=== PATIENT | female | born 1935 | race Caucasian/White ===

== ENCOUNTER 2017-01-17 06:33 | Inpatient (IN) | payer BC, OTHER ==
[2017-01-05 12:15] VITALS: BMI 26.0
--- NOTE | 2017-01-05 12:58 | PAT Medication Instructions ---
Service Date Jan 05, 2017. Current Home Medication List Acetaminophen Tab (Tylenol), 325 MG PO Calcium (Calcium), 1,000 MG PO QAM Calcium Carbonate (Tums), 500 MG PO for GI Upset Cholecalciferol (Vitamin D), 1 TAB PO QAM Diphenhydramine-Acetaminophen (Excedrin Pm), Unknown Dose PO for Pain Flaxseed (Linseed) (Flaxseed Oil), 1 CAP PO QAM Fluocinolone Acetonide (Otic) (Fluocinolone Acetonide), 1 DOSE OTB DAILY PRN for ITCHY EARS Szmvtdbtsix-Dbfsxbnqpnm-Evy C- (Glucosamine Chondroitin), 1 DOSE PO QAM Lactic Acid (Ammonium Lactate Cream 12%), 1 DOSE TOP DAILY PRN for ITCHING ON BACK Levothyroxine Sodium (Synthroid), 25 MCG PO QAM Loratadine (Claritin), 10 MG PO DAILY PRN for ALLERGIC REACTION Triamcinolone Acet (Triamcinolone Acetonide), 1 APPLN TOP BID PRN for RASH Vitamin B Cmplx/Vitc/Folic Ac (Nephrocaps), 1 CAP PO QAM Medication Instructions For Your Scheduled Surgery Diphenhydramine-Acetaminophen (Excedrin Pm), Unknown Dose PO for Pain (check with surgeon for instructions) - Hold the following medications starting 01/06/17: Pnjpezvnxol-Xuklycuayfs-Aaf C- (Glucosamine Chondroitin), 1 DOSE PO QAM Flaxseed (Linseed) (Flaxseed Oil), 1 CAP PO QAM - Hold the following medications 24 hours prior to surgery: Triamcinolone Acet (Triamcinolone Acetonide), 1 APPLN TOP BID PRN for RASH Lactic Acid (Ammonium Lactate Cream 12%), 1 DOSE TOP DAILY PRN for ITCHING ON BACK - Hold the following medications the morning of surgery: Vitamin B Cmplx/Vitc/Folic Ac (Nephrocaps), 1 CAP PO QAM Loratadine (Claritin), 10 MG PO DAILY PRN for ALLERGIC REACTION Calcium Carbonate (Tums), 500 MG PO for GI Upset Cholecalciferol (Vitamin D), 1 TAB PO QAMx Calcium (Calcium), 1,000 MG PO QAM - Take the following medications the morning of surgery with a sip of water: Levothyroxine Sodium (Synthroid), 25 MCG PO QAM Acetaminophen Tab (Tylenol), 325 MG PO Fluocinolone Acetonide (Otic) (Fluocinolone Acetonide), 1 DOSE OTB DAILY PRN for ITCHY EARS - Take the following medications as scheduled the night before surgery: Loratadine (Claritin), 10 MG PO DAILY PRN for ALLERGIC REACTION Acetaminophen Tab (Tylenol), 325 MG PO Fluocinolone Acetonide (Otic) (Fluocinolone Acetonide), 1 DOSE OTB DAILY PRN for ITCHY EARS If you have any questions please call us at [phone] (Erma Zaman PA-C) or [phone] or [phone]
[2017-01-05 13:20] LABS: BASO % 0.5 %; BASO ABS # 0.03 K/uL (0-0.2); COMPLETE YES; EOS % 5.4 %; HEMATOCRIT 41.6 % (37-47); IG% 0.2 %; LYMPH % 24.8 %; LYMPH ABS # 1.55 K/uL (1.2-3.4); MEAN CELL VOLUME 94.8 fL (80-100); MEAN CORPUSCULAR HEMOGLOBIN 32.8 pg (25-34); MEAN CORPUSCULAR HGB CONC 34.6 g/dl (32-36); MEAN PLATELET VOLUME 10.7 fL (7.4-10.4); MONO % 7.5 %; NEUT % 61.6 %; PLATELET COUNT 231 K/uL (130-400); RED BLOOD COUNT 4.39 M/uL (4.2-5.4); WHITE BLOOD COUNT 6.25 K/uL (4.8-10.8)
--- NOTE | 2017-01-05 13:29 | DIAGNOSTIC IMAGING REPORT ---
CHEST 2 VIEWS ROUTINE CLINICAL HISTORY: Preoperative evaluation. COMPARISON STUDY: Chest radiograph October 18, 2015. FINDINGS: Lung volumes are normal. There is no pneumothorax or pleural effusion. Pulmonary vascularity is normal. Cardiomediastinal silhouette is normal. Minimal left basilar opacity likely reflects epicardial fat pad or atelectasis. There is no evidence of pulmonary edema. IMPRESSION: No acute cardiopulmonary findings. Electronically signed by: Logan Truong M.D. 01/05/2017 1:28 PM Dictated Date/Time: 01/05/2017 1:27 PM
[2017-01-05 13:32] LABS: PROTHROMBIN TIME (PATIENT) 10.4 SECONDS (9.0-12.0)
[2017-01-05 13:43] LABS: BLOOD UREA NITROGEN 20 mg/dl (7-18); BUN/CREATININE RATIO 17.8 (10-20); C-REACTIVE PROTEIN < 0.29 mg/dl (0-0.29); CALCIUM 8.8 mg/dl (8.5-10.1); CARBON DIOXIDE 30 mmol/L (21-32); CHLORIDE 105 mmol/L (98-107); GLUCOSE 91 mg/dl (70-99); POTASSIUM 3.8 mmol/L (3.5-5.1); SODIUM 142 mmol/L (136-145)
--- NOTE | 2017-01-13 18:47 | HISTORY & PHYSICAL EXAMINATION ---
DATE OF ADMISSION: 01/17/2017 CHIEF COMPLAINT: Persistent right knee pain, discomfort after partial knee replacement. HISTORY OF PRESENT ILLNESS: The patient is a 81-year-old white female who is now 8 years out from a right partial knee replacement. She initially did pretty well, but over the past several years she has developed increased pain and discomfort and intermittently severely disabling times with her knee. She has had to use a cane to get around for periods of time. Her symptoms do tend to wax and wane where at some point she has difficulty even walking, another point that it is not so bad. She describes fairly global pain in her knee. It is increased with weightbearing. She cannot take anti-inflammatories or any other pain medicines due to allergies and reactions. She does not do well with injections either. X-rays show progression of her lateral compartment arthritis. She would really like to have her knee fixed. There has been no history of infection. PAST MEDICAL HISTORY: 1. Multiple allergies. 2. Hypertension. 3. Sleep apnea with CPAP machine. 4. Hypothyroidism. 5. Gastroesophageal reflux disease. 6. Hiatal hernia. 7. Esophagitis PAST SURGICAL HISTORY: Include 1. Right partial knee replacement done on 12/04/2008. 2. Left partial knee replacement done on 08/14/2008. 3. Tonsillectomy. 4. Appendectomy. 5. Foot surgery. 6. Sinus surgery. ALLERGIES: MULTIPLE AND INCLUDE ANTI-INFLAMMATORIES WHICH ARE NOT A TRUE ANAPHYLACTIC REACTIONS, SULFA DRUGS, STATINS, QUINOLONES, IODINE, ACTONEL, EVISTA, FOSAMAX, ASTELIN, PRILOSEC, PROTONIX, DECONGESTANTS, WHEAT, EGGS, CORN, DAIRY. CURRENT MEDICINES: Include 1. Levothyroxine. 2. Claritin. 3. Tylenol. SOCIAL HISTORY: A 81-year-old female. She is . Fairly active. FAMILY HISTORY: Noncontributory. REVIEW OF SYSTEMS: Negative for diabetes, neurologic problems, vascular problems, bleeding disorders. Denies any chest pain or shortness of breath. No history of DVT or PE. She does have these multiple allergies many of which are not true anaphylactic reactions. PHYSICAL EXAMINATION: GENERAL: Reveals a pleasant, elderly female. She looks to be in good health. HEENT: Benign. NECK: Supple. No lymphadenopathy. LUNGS: Clear to auscultation. HEART: Regular rate and rhythm. ABDOMEN: Soft, nontender, nondistended. EXTREMITIES: Grossly neurovascularly intact except as follows: Examination of the right leg reveals the patient walks with the use of a cane. She has got a well-healed medial incision. Fairly small knee effusion. She got pretty significant varicose veins around her right anterior knee area. Range of motion 0-125. No instability. X-RAYS: X-rays of the right knee reviewed. It shows a well-positioned partial knee replacement. There is an extra piece of cement medially which has been there for quite some time. She does have some progression of her lateral compartment disease. I do not see any obvious signs of loosening of her partial knee replacement. ASSESSMENT: A 81-year-old female 8 years out from a right partial knee replacement with several year history of intermittent severe bouts of pain with respect to right knee. There is no history of infection. There is this piece of cement which is there but does not seem to be migrating and she does have progression of her lateral compartment disease. PLAN: We talked about treatment options. She really would like to have this revised to a full knee replacement. I told her there is no guarantee that this will fix all of her problems but she does have a reason to have some pain in her knee. We are going to take her to the operating room and do a right total knee replacement. We are going to convert the partial to a full knee replacement. The risks and benefits of this procedure were explained to the patient including but not limited to DVT, PE, , infection, neurological injury, vascular injury, bleeding problem, pain, limited range of motion, stiffness, failure to relieve her symptoms, incomplete relief of symptoms, need for further surgery in the future, fracture, leg length inequality, nerve palsy, failure to relieve her symptoms. The patient understands and desires to proceed. Informed consent was obtained. I did do a preoperative workup. Her white cell count is normal. Her sed rate is normal and C-reactive protein are normal and therefore we did not aspirate her knee joint. I think it is extremely unlikely she has any infection, but we will evaluate things intraoperatively as well. Postoperative pain control will be an issue. She is allergic to just about everything and will have to the stick to Tylenol and may be some limited narcotics. As far as discharge plans, she is hoping to be discharged to home with some home health using [facility] home [facility] program.
[~2017-01-17] VITALS: Ht 172.7 cm; Wt 80.0 kg
[2017-01-17] VITALS (7 sets, daily range): BP systolic 157–174; BP diastolic 67–94; PULSE 58–65; TEMP 36.4–36.9; O2SAT 95–99; Ht 172.7 cm; Wt 80.0 kg
[~2017-01-17 06:33] MED LIST: ACET325T96 PO; ACETAMINOPHEN 500 MG TAB PO SCH; B-CO1CAP17 PO; BUPIVACAINE LIPOSOME 266 MG, BUPIVACAINE/EPINEPHRINE INJ 50 ML, SODIUM CHLORIDE 0.9% PF... INFIL SCH; CALC500C3 PO; CALC500T83 PO; CEFAZOLIN 2000 MG/60 ML D5W 60 ML IV SCH; CHOL100010 PO; DIPH38TA PO; FAMOTIDINE 20 MG TAB PO SCH; FLAX12003 PO; FLUO5OIL OTB; GABAPENTIN 300 MG CAP PO SCH; GLUCTAB7 PO; LACTATED RINGER'S 1000ML 1,000 ML IV SCH; LCHC12280 TOP; LEVO25TA PO; LORA10TA5 PO; METOCLOPRAMIDE HCL 10 MG TAB PO SCH; SCOPOLAMINE 1.5 MG TDSY TD SCH; TRANEXAMIC ACID INJ 1,000 MG in SODIUM CHLORIDE 0.9% 100ML 100 ML IV SCH; TRMO115 TOP; [UNRECOGNIZED DRUG - REMARK] SCH
--- NOTE | 2017-01-17 06:51 | History & Physical Bridge Note ---
H&P Re-Evaluation Bridge Note: I have examined the patient, reviewed the History & Physical and in the interval since the performance of the History & Physical I have noted the following changes of clinical significance: No changes noted
[2017-01-17] MEDS ORDERED: BUPIVACAINE 0.25% 30 ML VIAL ONE (07:17)
[2017-01-17] MEDS ORDERED: BUPIVACAINE 0.5 % 5 MG/1 ML PF 10ML VIAL ONE (07:17)
[2017-01-17] MEDS ORDERED: MIDAZOLAM HCL 1 MG/ML 2ML VIAL ONE (08:00)
[2017-01-17] MEDS ORDERED: FENTANYL CITRATE INJ 50 MCG/1 ML 2 ML VIAL ONE (08:00)
[2017-01-17] MEDS ORDERED: LACTATED RINGER'S 1000ML 1,000 ML IV PRN (08:09)
[2017-01-17] MEDS ORDERED: ONDANSETRON INJ 2 MG/ML 2 ML VIAL IV PRN ×2 (08:15→11:30)
[2017-01-17] MEDS ORDERED: FENTANYL CITRATE INJ 50 MCG/1 ML 2 ML VIAL IV PRN (08:15)
[2017-01-17] MEDS ORDERED: BUPIVACAINE/EPINEPHRINE 0.25% 1:200,000 30 ML VIAL ONE (09:30)
[2017-01-17] MEDS ORDERED: BACITRACIN 50000 UNIT VIAL ONE ×2 (09:30→09:43)
[2017-01-17] MEDS ORDERED: SODIUM CHLORIDE 0.9% PF 50 ML VIAL ONE (09:30)
[2017-01-17] MEDS ORDERED: BUPIVACAINE LIPOSOME 1/3% 266 MG/20 ML VIAL INFIL ONE (09:30)
[2017-01-17] MEDS ORDERED: PROPOFOL IV EMULSION 10 MG/ML 20 ML VIAL IV ONE ×2 (10:11)
[2017-01-17] MEDS ORDERED: VANCOMYCIN HCL 1000MG/20ML VIAL ONE (10:37)
[2017-01-17] MEDS ORDERED: BISACODYL 10 MG SUPP PR PRN (11:30)
[2017-01-17] MEDS ORDERED: LORATADINE 10 MG TAB PO PRN (11:30)
[2017-01-17] MEDS ORDERED: METOCLOPRAMIDE HCL INJ 5 MG/ML 2 ML VIAL IV PRN (11:30)
[2017-01-17] MEDS ORDERED: CALCIUM CARBONATE 500 MG CHEWABLE PO PRN (11:30)
[2017-01-17] MEDS ORDERED: TRIAMCINOLONE ACET 0.1% OINT 15 GM TUBE TOP PRN (11:30)
[2017-01-17] MEDS ORDERED: ZOLPIDEM TARTRATE 5 MG TAB PO PRN (11:30)
[2017-01-17] MEDS ORDERED: MAGNESIUM HYDROXIDE SUSP 30 ML UDC PO PRN (11:30)
[2017-01-17] MEDS ORDERED: DiphenhydrAMINE HCL 50 MG/ML VIAL IV PRN (11:30)
--- NOTE | 2017-01-17 11:30 | [facility] Post Operative Brief Note ---
Immediate Operative Summary Operative Date Jan 17, 2017. 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 Gala STEVENS Stonemason Helper Surgeon(s) Gage JONES PA-C Estimated Blood Loss 250ML Findings Failed Uni-knee; Progressive Arthritis Fluids (cc crystalloids) 1400 vv Specimens A: RIGHT KNEE BONE AND TISSUE b: EXPLANTED HARDWARE FROZEN 1. RIGHT KNEE SYNOVIUM- LEFT ROOM AT 1008. Drains None Anesthesia Spinal Complication(s) None Disposition Recovery Room / PACU
--- NOTE | 2017-01-17 12:10 | DIAGNOSTIC IMAGING REPORT ---
TWO VIEWS RIGHT KNEE CLINICAL HISTORY: Postoperative examination. FINDINGS: AP and crosstable lateral portable views of the right knee are obtained. A right knee arthroplasty is in near anatomic alignment. There has been undersurface remodeling of the patella. No acute fracture is seen. There are expected postoperative changes around the knee including skin clips, soft tissue edema, and subcutaneous gas. IMPRESSION: Expected postoperative changes status post right knee arthroplasty. No acute fracture is seen. Electronically signed by: Farhan Ramirez M.D. 01/17/2017 12:09 PM Dictated Date/Time: 01/17/2017 12:09 PM
--- NOTE | 2017-01-17 12:17 | Anesthesiology Progress Note ---
Anesthesia Post Op Note Date & Time Jan 17, 2017 at 12:17 Vital Signs Pain Intensity: 0 Vital Signs Past 12 Hours Date Time Temp Pulse Resp B/P Pulse Ox O2 Delivery O2 Flow Rate FiO2 01/17/17 12:00 36.4 62 16 150/68 100 Nasal Cannula 2 01/17/17 11:50 62 16 166/63 97 Nasal Cannula 2 01/17/17 11:40 63 18 148/64 98 Nasal Cannula 2 01/17/17 11:34 36.0 65 16 134/76 99 Nasal Cannula 2 01/17/17 07:09 36.8 65 20 174/94 96 Room Air Notes Mental Status: alert / awake / arousable, participated in evaluation Pt Amnestic to Procedure: Yes Nausea / Vomiting: adequately controlled Pain: adequately controlled Airway Patency, RR, SpO2: stable & adequate BP & HR: stable & adequate Hydration State: stable & adequate Neuraxial Anesthesia: was administered, sensory block is resolving Anesthetic Complications: no major complications apparent Pt doing well.
--- NOTE | 2017-01-17 12:28 | OPERATIVE REPORT ---
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 POSTOPERATIVE DIAGNOSIS: Same. PROCEDURE PERFORMED: Right revision total knee arthroplasty with conversion of a partial knee to a full knee replacement. COMPLICATIONS: None. ESTIMATED BLOOD LOSS: 50 mL. FLUID REPLACEMENT: 1400 mL crystalloid fluid replacement. ANESTHESIA: Spinal with adductor canal block. DRAINS: None. SPECIMENS: 1. Synovium sent for numbers of poly per high power field, which was less than 2. 2. Knee sent for pathology. OPERATIVE INDICATIONS: The patient is a 81-year-old very active female, who is now about 8 years out from a right partial knee replacement. Over the past several years, she has had intermittent severe problems in her right knee. It is really limiting her activities. She was seen on multiple occasions with intermittent swelling and discomfort. Radiographs did not show any obvious abnormalities. She had failed conservative treatment. She elected to proceed with revision of a partial to full knee replacement. Of note, the patient did have an infectious workup with a normal sed rate and normal C-reactive protein. OPERATIVE FINDINGS: Operative findings revealed intact knee components. She had hemosiderin synovitis of the knee. She did have a large cyst in her lateral tibial plateau and progression of arthritis to the lateral femoral condyle as well as the patellofemoral joint with some grade 4 changes. The components were not loose. There were no signs of infection. OPERATIVE IMPLANTS: Operative implants consisted of: 1. Biomet Vanguard size 65 right posterior stabilized femoral component. 2. Biomet size 71 tibial tray. 3. A 14-mm posterior stabilized polyethylene insert. 4. A 34 x 8.5 all poly patella. OPERATIVE PROCEDURE: The patient was taken to the operating room, identified and placed on the operating table in supine position. All contact areas were appropriately padded. IV antibiotics were provided by anesthesia team. A spinal anesthetic and adductor canal block had been provided in the holding area. Alexandra catheter was placed in sterile fashion. Right thigh tourniquet was then placed and the right lower extremity was then prepped and draped in the usual sterile fashion. The right leg was elevated and exsanguinated with Esmarch and tourniquet was placed at 300 mmHg. An anterior approach to the right knee was then performed using the previous incision extending it superiorly over the patella and the quad tendon and then just slightly distally. Sharp dissection was carried out through the subcutaneous tissues down to the level of the extensor mechanism. A medial parapatellar arthrotomy incision was made. Some subperiosteal dissection was carried out medially. The fat pad was resected from beneath the patellar tendon. The patella was subluxated and the knee was flexed. The osteophytes were taken off the distal femur. The ACL and PCL were then released from the distal femur and the tibia subluxated anteriorly. The external tibial alignment jig was then placed in the anterior face of the tibia and the tibia was subluxated anteriorly. I then used the ACL saw blade to remove the tibial tray. We did have to loosen this up and then using the stacked osteotome technique, removed the tibial tray. It was not loose. The external tibial alignment jig was then placed in the anterior face of the tibia and adjusted 14 mm medially. Proximal tibial cut was made just below the previous implant surface. We got good bony contact. We elected not to place the stem. The tibia was sized to a size 71. Attention was then drawn to the femur. The distal femur was entered with a sharp drill bit. Intramedullary canal was suctioned. A right 5-degree valgus cutting guide was placed. Distal femoral cutting block was pinned in place. I then removed the block and left the pins. Using the ACL saw, we disrupted the interface of the femoral component and then using the stacked osteotome technique, removed the femoral component as well. This was not loose either. The distal femoral cutting block was then placed back on the pins. Distal femoral cut was made to take an additional 3 mm of bone off the distal femur. The femur was then sized to a size 65. This did downsize this slightly. The AP cutting block was pinned parallel to the epicondylar axis. We have to hold this in proper position due to the deficiency of the medial femoral condyle from the previous arthroplasty. The anterior cut, anterior chamfer, posterior cut, and posterior chamfer cuts were made. Box cutting guide was placed and adjusted slight lateral and the box cut was made. The knee was flexed. The remnants of the medial and lateral menisci were excised. The osteophytes were taken off the posterior aspect of the femur. Trial femoral component was placed. Tibial tray was pinned in maximum external rotation and drill and stem punch were used to create defect in proximal tibia for the tibial tray. Of note, there was a large cyst in the lateral tibial plateau, which we curetted and eventually filled with cement. The knee was then trialed and the 14-mm insert fit most appropriately. Attention was then drawn to the patella. The patella was cleaned of all soft tissues. Patellar thickness measured 20 mm in thickness and it was cut down to 12. It was sized to a size 34 patella. Lug holes were drilled for a 34 patella. Lateral osteophyte was removed. Patella button was placed. Knee was taken through range of motion and the patella tracked nicely with no thumbs test. Attention was then drawn toward placement of permanent components. All trial components were removed. Bone plug was placed in the distal femur to limit blood loss. A double batch of Palacos G cement was mixed. I did add an additional gram of vancomycin due to the multiple surgeries that she has had. A size 65 posterior stabilized femoral component, size 71 tibial tray, 14-mm posterior stabilized polyethylene insert, and a 34 x 8.5 all poly patella then cemented in place. Knee was brought out into full extension until cement hardened. A final cement check was then performed. Pericapsular tissues were injected with a total of 100 mL of a combination of 20 mL of Exparel, 30 mL normal saline, and 50 mL of 0.25% Marcaine with epinephrine. The tourniquet was then let down for final tourniquet time of 71 minutes. Hemostasis was assured with use of electrocautery. The wound was once again irrigated. The extensor mechanism was closed with a combination of #1 PDS suture and #1 Vicryl suture in a enxwan-jf-euesg fashion. The extensor mechanism checked and found to be intact. The subcutaneous tissues were then closed with 2-0 Dexon suture in a buried interrupted fashion. Skin was closed skin hudson. Leg was then cleaned and dried and a sterile dressing of Xeroform, 4 x 4, sterile cast padding and Naun bandage were applied. The patient then transferred to the recovery room in stable condition. The patient tolerated the procedure well with no complications. All needle and sponge counts were correct at the end of the operation. After we did exposure, I did a complete synovectomy of the suprapatellar pouch and medial and lateral gutters. The frozen section came back less than 2 polys per high power field. There was hemosiderin synovitis of unclear etiology and clearly evidence of bleeding in the knee of unclear etiology. I attest to the content of the Intraoperative Record and any orders documented therein. Any exceptio ns are noted below.
[2017-01-17] MEDS ORDERED: AMMONIUM LACTATE 12% LOTION 225 GM BTL EXT PRN (14:00)
[2017-01-17] MEDS: ACETAMINOPHEN 500 MG TAB PO SCH ×2 (14:00→21:12)
[2017-01-17] MEDS: D5W AND 1/2NSS + 20MEQ KCL 1,000 ML IV SCH ×2 (14:42→23:55)
[2017-01-17] MEDS: OXYCODONE HCL IR 5 MG TAB (IMMEDIATE RELEASE) PO PRN ×2 (14:47→18:56)
[2017-01-17] MEDS: HYDROmorphone INJ 0.5 MG/0.5 ML SYR IV PRN ×2 (16:35→21:09)
[2017-01-17] MEDS ORDERED: TRANEXAMIC ACID INJ 1,000 MG in SODIUM CHLORIDE 0.9% 100ML 100 ML IV SCH (17:30)
[2017-01-17] MEDS: FERROUS GLUCONATE 324 MG TAB PO SCH (17:56)
[2017-01-17] MEDS: CEFAZOLIN IV 1,000 MG in DEXTROSE 5% 50ML 50 ML IV SCH (18:52)
--- NOTE | 2017-01-17 20:24 | PROGRESS NOTE ---
DATE: 01/17/2017 SUBJECTIVE: A 81-year-old white female, postop from a conversion of right partial knee to full knee replacement. She is doing pretty well. Pretty painful, but better since she got some pain medicines. Denies any chest pain or shortness of breath. Not feeling dizzy or lightheaded. OBJECTIVE: VITAL SIGNS: Temperature is 36.8. Vital signs stable. PHYSICAL EXAMINATION: GENERAL: Reveals a pleasant elderly female. She is sitting up in bed and looks reasonably comfortable. Clearly having some discomfort though. LUNGS: Clear to auscultation. HEART: Has a regular rate and rhythm. ABDOMEN: Soft, nontender, nondistended. EXTREMITIES: Grossly neurovascularly intact except as follows. Examination of the right lower extremity reveals the leg to be well aligned. Dressing is clean, dry and intact. She can dorsiflex and plantarflex her foot appropriately. She is neurologically intact. X-RAYS: X-rays of the right knee from recovery room were reviewed. It shows a right cemented posterior stabilized total knee arthroplasty. Components look to be in good position. No signs of problems. ASSESSMENT: A 81-year-old white female, postop from a right revision of a partial to full knee replacement. She is doing pretty well. Pretty painful, but she has got difficulty with multiple meds and makes pain control difficult with her reported allergies. I do not think a lot of these are true allergies and we may end up giving her some anti-inflammatories and Toradol if the pain gets too bad. PLAN: 1. DVT prophylaxis including thigh-high TEDs, SCDs, and aspirin twice a day. 2. PT/OT. Weightbearing as tolerated. Right total knee protocol. 3. Pain control. We are going to continue with IV pain medicines as needed and use the oxycodone and Tylenol. We may give her some Toradol if her pain gets worse or is not adequately controlled. 4. IV antibiotics x24 hours. 5. Disposition: She is hoping to be discharged to home with some home health once adequately recovered.
[2017-01-17] MEDS: ASPIRIN 325 MG ECTAB PO SCH (21:13)
[2017-01-17] MEDS: DOCUSATE SODIUM 100 MG CAP PO SCH (21:13)
[2017-01-18] VITALS (7 sets, daily range): BP systolic 126–176; BP diastolic 66–74; PULSE 65–88; TEMP 36.7–38.1; O2SAT 91–97
[2017-01-18] MEDS: CEFAZOLIN IV 1,000 MG in DEXTROSE 5% 50ML 50 ML IV SCH (02:15)
[2017-01-18] MEDS: LEVOTHYROXINE 25 MCG TAB PO SCH (06:09)
[2017-01-18] MEDS: ACETAMINOPHEN 500 MG TAB PO SCH ×3 (06:10→21:35)
[2017-01-18 06:17] LABS: HEMATOCRIT 33.5 % (37-47); MEAN CELL VOLUME 94.1 fL (80-100); MEAN PLATELET VOLUME 10.7 fL (7.4-10.4); PLATELET COUNT 186 K/uL (130-400); RED BLOOD COUNT 3.56 M/uL (4.2-5.4); WHITE BLOOD COUNT 8.45 K/uL (4.8-10.8)
[2017-01-18] MEDS: OXYCODONE HCL IR 5 MG TAB (IMMEDIATE RELEASE) PO PRN ×3 (06:21→20:46)
[2017-01-18 06:52] LABS: BUN/CREATININE RATIO 14.9 (10-20); CALCIUM 8.1 mg/dl (8.5-10.1); CREATININE 0.96 mg/dl (0.60-1.20); POTASSIUM 3.6 mmol/L (3.5-5.1)
--- NOTE | 2017-01-18 07:41 | ORTHOPEDIC PROGRESS NOTE ---
DATE: 01/18/2017 SUBJECTIVE: Angelica is a 81-year-old female who is postop day 1 from a conversion of a right partial knee replacement to a full total knee replacement. She is having some pain with her knee. No chest pain, shortness of breath. Had a difficult time sleeping overnight due to some alarms and noises. No other complaints at this time. OBJECTIVE: She is alert, oriented in no distress. Examination of the right lower extremity dressings clean, dry and intact. She is able to dorsiflex, plantarflex well. She is neurovascularly intact. ASSESSMENT: Postop day 1 from conversion of a right partial knee replacement to a total knee replacement. PLAN: She was seen and examined by Dr. Bazan today as well. Continue DARYL stockings, SCDs and aspirin for deep venous thrombosis prophylaxis. Continue physical therapy, weightbearing as tolerated. Will discontinue her IV fluids at this time. Her pain is reasonably controlled as well. Continue with current pain regimen. Will continue discharge planning with discharge home with home healthcare versus possible rehab upon discharge as well.
[2017-01-18] MEDS: FERROUS GLUCONATE 324 MG TAB PO SCH ×3 (08:35→18:32)
--- NOTE | 2017-01-18 08:35 | Anesthesiology Progress Note ---
Anesthesia Post Op Note Date & Time Jan 18, 2017 at 08:35 Vital Signs Pain Intensity: 7.0 Vital Signs Past 12 Hours Date Time Temp Pulse Resp B/P Pulse Ox O2 Delivery O2 Flow Rate FiO2 01/18/17 07:37 38.1 70 18 172/74 94 Room Air 01/18/17 03:52 37.5 65 16 166/67 97 CPAP 01/18/17 00:05 37.4 69 16 145/69 92 Room Air 01/18/17 00:00 Room Air Notes Mental Status: alert / awake / arousable, participated in evaluation Pt Amnestic to Procedure: Yes Nausea / Vomiting: adequately controlled Pain: adequately controlled Airway Patency, RR, SpO2: stable & adequate BP & HR: stable & adequate Hydration State: stable & adequate Neuraxial Anesthesia: sensory block resolved Anesthetic Complications: no major complications apparent
[2017-01-18] MEDS: DOCUSATE SODIUM 100 MG CAP PO SCH ×2 (08:36→20:47)
[2017-01-18] MEDS: ASPIRIN 325 MG ECTAB PO SCH ×2 (08:36→20:47)
[2017-01-18] MEDS: CALCIUM CARBONATE 1250MG TAB PO SCH (08:36)
[2017-01-18] MEDS: NEPHROCAPS PO SCH (08:36)
[2017-01-18] MEDS: MULTIVITAMIN TAB PO SCH (08:36)
[2017-01-18] MEDS: CHOLECALCIFEROL 400 INTER.UNIT TAB PO SCH (08:37)
[2017-01-18] MEDS ORDERED: NON-FORMULARY MEDICATION (Flaxseed (Linseed) (Flaxseed Oil) 1 CAP) PO SCH (09:00)
[2017-01-18] MEDS ORDERED: ACET-1138 PO (21:39)
[2017-01-18] MEDS ORDERED: RXC5 PO (21:39)
[2017-01-18] MEDS ORDERED: ASPEC325 PO (21:39)
--- NOTE | 2017-01-18 21:41 | Discharge Instructions ---
Discharge Instructions Date of Service Jan 18, 2017. Admission Reason for Admission: Right Knee Osteoarthritis, Pain D/T Implant Device Discharge Discharge Diagnosis / Problem: Right Knee Replacement Discharge Goals Goal(s): Decrease discomfort, Improve function, Increase independence, Improve disease control, Therapeutic intervention Activity Recommendations Activity Limitations: per Instructions/Follow-up section Weightbearing Status: Right weightbearing . Instructions / Follow-Up Instructions / Follow-Up ACTIVITY RECOMMENDATIONS: Physical Therapy: * You will go to physical therapy three times each week for four to six weeks after your surgery in order to regain your knee range of motion and to retrain your knee to work properly. * It is just as important to make sure you are getting your knee perfectly straight as it is to regain your knee bend. * Taking a pain pill an hour before therapy can help you have a more productive and comfortable therapy session. Home Exercise: * You were shown a series of exercises (heel props, heel slides, etc.) in the hospital. Do these exercises three to four times each day including the exercises you were shown in physical therapy. Walking: * Get up and walk several times each day. For the first four weeks, try not to stand or walk for more than one hour at a time. If you do stand or walk for more than one hour, you will not hurt anything, but your knee and leg will likely swell. * As you feel comfortable, you may change from the walker or crutches to a cane and then to independent walking. MEDICATIONS: New Medicine: * You will likely be taking one or more of these medications: 1. Oxycodone - A quick and shorter-acting pain medication. Take one to two tablets every four to six hours to lessen your pain. 2. Aspirin - Thins your blood to lessen the chance of forming a blood clot. * The most common side effects of pain medicine and iron are nausea and constipation. If nausea or constipation is too much of a problem or if you have any questions about your new medicines or doses, call [facility] at . We will try to help you manage these issues. VERY IMPORTANT TO READ AND REVIEW" Pain: * The immediate post-operative period after knee replacement surgery is often quite painful. * You are given a prescription for pain medicine. You should take it, as directed, when you need it, especially before physical therapy and before going to bed. Pain that interferes with sleep is very common and can last several months. * You will likely need pain medicine for the first four to six weeks. It will not stop all of the pain. The pain will lessen and as you feel better, you may change to milder pain medicine such as Tylenol. * The most common side effects of pain medicine are nausea and constipation, so don't take more than you need. SPECIAL CARE INSTRUCTIONS: TEDs/Elastic Stockings: * The white elastic stockings help limit swelling and prevent blood clots from forming in your legs. The more you wear them, the more they work. * Wear them for six weeks after knee replacement surgery and four weeks after partial knee replacement. Prevention of Infection: * Take antibiotics one hour before any dental cleaning, dental work, urological procedure, gastrointestinal procedure or any invasive surgery in order to prevent your new joint from getting infected. * You may get the antibiotics from the doctor performing the procedure or you may call our office at before and we will call in a prescription to the pharmacy of your choice. Things to Watch For: * Drainage from the incision site that occurs more than one week after your surgery. * Severely increased knee/leg pain or swelling. * Increased redness at the incision site. * Fever above 102 degrees Fahrenheit. * Unusual chest pain or shortness of breath. * Unusual pain or burning with urination. Call [facility] at with any of the above problems or if you have any questions about your medicines or recovery. FOLLOW UP VISIT: Make an appointment to see your doctor for approximately two weeks after surgery for a progress check and staple removal by calling the office at . Current Hospital Diet Patient's current hospital diet: Regular Diet Discharge Diet Recommended Diet: Regular Diet Procedures Procedures Performed: RIGHT UNI KNEE CONVERTED TO TOTAL RIGHT KNEE ARTHROPLASTY / Revision Total Knee Arthoplasty Pending Studies Studies pending at discharge: no Medical Emergencies . Who to Call and When: Medical Emergencies: If at any time you feel your situation is an emergency, please call [phone] immediately. . Non-Emergent Contact Non-Emergency issues call your: Surgeon . "Provider Documentation" section prepared by Obed Bazan. VTE Core Measure Inpt VTE Proph given/why not?: Other Anticoagulation, T.E.D. Stockings, SCD's
[2017-01-19] MEDS: OXYCODONE HCL IR 5 MG TAB (IMMEDIATE RELEASE) PO PRN ×3 (02:15→14:33)
[2017-01-19] MEDS: LEVOTHYROXINE 25 MCG TAB PO SCH (06:02)
[2017-01-19] MEDS: ACETAMINOPHEN 500 MG TAB PO SCH ×3 (06:03→21:33)
--- NOTE | 2017-01-19 07:35 | Discharge Instructions ---
Discharge Instructions Date of Service Jan 19, 2017. Admission Reason for Admission: Right Knee Osteoarthritis, Pain D/T Implant Device Discharge Discharge Diagnosis / Problem: Right Knee Replacement Revision Discharge Goals Goal(s): Decrease discomfort, Improve function, Increase independence, Improve disease control, Therapeutic intervention Activity Recommendations Activity Level: Assistance Required Therapies: Physical Therapy, Occupational Therapy Weightbearing Status: Right weightbearing . Additional Information Patient informed of condition: Yes Advance Directives: Yes DNR: No Level of Care: Acute Rehab Communicable Disease: No Prognosis: Improving Instructions / Follow-Up Instructions / Follow-Up ACTIVITY RECOMMENDATIONS: Physical Therapy: * You will go to physical therapy three times each week for four to six weeks after your surgery in order to regain your knee range of motion and to retrain your knee to work properly. * It is just as important to make sure you are getting your knee perfectly straight as it is to regain your knee bend. * Taking a pain pill an hour before therapy can help you have a more productive and comfortable therapy session. Home Exercise: * You were shown a series of exercises (heel props, heel slides, etc.) in the hospital. Do these exercises three to four times each day including the exercises you were shown in physical therapy. Walking: * Get up and walk several times each day. For the first four weeks, try not to stand or walk for more than one hour at a time. If you do stand or walk for more than one hour, you will not hurt anything, but your knee and leg will likely swell. * As you feel comfortable, you may change from the walker or crutches to a cane and then to independent walking. MEDICATIONS: New Medicine: * You will likely be taking one or more of these medications: 1. Oxycodone - A quick and shorter-acting pain medication. Take one to two tablets every four to six hours to lessen your pain. 2. Aspirin - Thins your blood to lessen the chance of forming a blood clot. * The most common side effects of pain medicine and iron are nausea and constipation. If nausea or constipation is too much of a problem or if you have any questions about your new medicines or doses, call [facility] at . We will try to help you manage these issues. VERY IMPORTANT TO READ AND REVIEW" Pain: * The immediate post-operative period after knee replacement surgery is often quite painful. * You are given a prescription for pain medicine. You should take it, as directed, when you need it, especially before physical therapy and before going to bed. Pain that interferes with sleep is very common and can last several months. * You will likely need pain medicine for the first four to six weeks. It will not stop all of the pain. The pain will lessen and as you feel better, you may change to milder pain medicine such as Tylenol. * The most common side effects of pain medicine are nausea and constipation, so don't take more than you need. SPECIAL CARE INSTRUCTIONS: TEDs/Elastic Stockings: * The white elastic stockings help limit swelling and prevent blood clots from forming in your legs. The more you wear them, the more they work. * Wear them for six weeks after knee replacement surgery and four weeks after partial knee replacement. Prevention of Infection: * Take antibiotics one hour before any dental cleaning, dental work, urological procedure, gastrointestinal procedure or any invasive surgery in order to prevent your new joint from getting infected. * You may get the antibiotics from the doctor performing the procedure or you may call our office at before and we will call in a prescription to the pharmacy of your choice. Things to Watch For: * Drainage from the incision site that occurs more than one week after your surgery. * Severely increased knee/leg pain or swelling. * Increased redness at the incision site. * Fever above 102 degrees Fahrenheit. * Unusual chest pain or shortness of breath. * Unusual pain or burning with urination. Call [facility] at with any of the above problems or if you have any questions about your medicines or recovery. FOLLOW UP VISIT: Make an appointment to see your doctor for approximately two weeks after surgery for a progress check and staple removal by calling the office at . Current Hospital Diet Patient's current hospital diet: Regular Diet Discharge Diet Recommended Diet: Regular Diet Procedures Procedures Performed: RIGHT UNI KNEE CONVERTED TO TOTAL RIGHT KNEE ARTHROPLASTY / Revision Total Knee Arthoplasty Pending Studies Studies pending at discharge: no Medical Emergencies . Who to Call and When: Medical Emergencies: If at any time you feel your situation is an emergency, please call [phone] immediately. . Non-Emergent Contact Non-Emergency issues call your: Surgeon . . "Provider Documentation" section prepared by Obed Bazan. Core Measure Problem Core Measures: None
--- NOTE | 2017-01-19 08:07 | PROGRESS NOTE ---
DATE: 01/19/2017 SUBJECTIVE: A 81-year-old white female postop from a right revision of a partial to full knee replacement. Concerned about taking quite a bit of pain medicines. She is still requiring quite a bit to help just getting out of bed. Denies any chest pain or shortness of breath. Pain is a little bit better than yesterday. OBJECTIVE: VITAL SIGNS: Temperature 38.1. Vital signs stable. GENERAL: Reveals a pleasant, elderly female. She is awake, alert and oriented. LUNGS: Clear to auscultation. HEART: Regular rate and rhythm. ABDOMEN: Soft, nontender, and nondistended. EXTREMITIES: Grossly neurovascularly intact except as follows. Examination of the right lower extremity reveals the leg to be well aligned. Some moderate swelling. No significant drainage. She can dorsiflex and plantarflex her foot appropriately. She is neurologically intact. ASSESSMENT: A 81-year-old white female postop day 2 from a right total knee revision and replacement of partial to full knee replacement. Pain is a bit improved. She is concerned about her help at home and ability to get around. I do think she would be best served by going to rehabilitation. PLAN: 1. DVT prophylaxis including thigh-high TEDs, SCDs, and aspirin twice a day. 2. PT/OT. Weightbearing as tolerated. Right total knee protocol. 3. Pain control, doing pretty well with current pain regimen. She has not taken excessive pain meds. She just does not like taking medicines. She is going to need some oxycodone for the next 2-4 weeks. 4. Disposition: She does not feel ready to go home. Will get home health care social worker to see her about possible rehab stay.
[2017-01-19 08:16] VITALS: BP 122/78; PULSE 83; TEMP 36.9; O2SAT 95
[2017-01-19 09:09] VITALS: O2SAT 95
[2017-01-19] MEDS: DOCUSATE SODIUM 100 MG CAP PO SCH ×2 (09:15→21:32)
[2017-01-19] MEDS: ASPIRIN 325 MG ECTAB PO SCH ×2 (09:15→21:32)
[2017-01-19] MEDS: FERROUS GLUCONATE 324 MG TAB PO SCH ×3 (09:15→17:45)
[2017-01-19] MEDS: MULTIVITAMIN TAB PO SCH (09:16)
[2017-01-19] MEDS: CALCIUM CARBONATE 1250MG TAB PO SCH (09:16)
[2017-01-19] MEDS: CHOLECALCIFEROL 400 INTER.UNIT TAB PO SCH (09:16)
[2017-01-19] MEDS: NEPHROCAPS PO SCH (09:17)
[2017-01-19 15:07] VITALS: BP 134/64; PULSE 87; TEMP 37.6; O2SAT 91
[2017-01-19 23:11] VITALS: BP 149/65; PULSE 83; TEMP 37.7; O2SAT 95
[2017-01-19] MEDS: ALUMINUM/MAGNESIUM/SIMETH (MAALOX MAX) 30 ML UDC PO PRN (23:57)
[2017-01-20] MEDS: ACETAMINOPHEN 500 MG TAB PO SCH ×3 (05:52→19:46)
[2017-01-20] MEDS: LEVOTHYROXINE 25 MCG TAB PO SCH (05:55)
[2017-01-20] MEDS: OXYCODONE HCL IR 5 MG TAB (IMMEDIATE RELEASE) PO PRN ×3 (05:58→18:34)
[2017-01-20 07:47] VITALS: BP 140/61; PULSE 92; TEMP 37.7; O2SAT 96
[2017-01-20] MEDS: FERROUS GLUCONATE 324 MG TAB PO SCH ×3 (08:30→18:58)
[2017-01-20] MEDS: CHOLECALCIFEROL 400 INTER.UNIT TAB PO SCH (09:00)
[2017-01-20] MEDS: MULTIVITAMIN TAB PO SCH (09:00)
[2017-01-20] MEDS: CALCIUM CARBONATE 1250MG TAB PO SCH (09:00)
[2017-01-20] MEDS ORDERED: NURSING VERBAL MED ORDER ONE (09:15)
[2017-01-20] MEDS: NEPHROCAPS PO SCH (09:28)
[2017-01-20] MEDS: DOCUSATE SODIUM 100 MG CAP PO SCH ×2 (09:28→19:46)
[2017-01-20] MEDS: ASPIRIN 81 MG ECTAB PO SCH (10:33)
[2017-01-20 11:05] VITALS: BP 114/62
[2017-01-20 15:08] VITALS: BP 124/67; PULSE 92; TEMP 37.5; O2SAT 93
[2017-01-20 16:17] VITALS: BP 152/77; PULSE 86
[2017-01-20] MEDS: ALUMINUM/MAGNESIUM/SIMETH (MAALOX MAX) 30 ML UDC PO PRN (16:42)
[2017-01-20 18:02] LABS: BASO % 0.4 %; BASO ABS # 0.03 K/uL (0-0.2); EOS % 1.8 %; HEMATOCRIT 26.7 % (37-47); IG% 0.1 %; LYMPH % 14.6 %; LYMPH ABS # 1.14 K/uL (1.2-3.4); MEAN CELL VOLUME 96.7 fL (80-100); MEAN CORPUSCULAR HEMOGLOBIN 32.6 pg (25-34); MONO % 9.4 %; NEUT % 73.7 %; PLATELET COUNT 177 K/uL (130-400); RED BLOOD COUNT 2.76 M/uL (4.2-5.4)
[2017-01-20 18:23] LABS: COMPLETE YES; MEAN CORPUSCULAR HGB CONC 33.7 g/dl (32-36)
[2017-01-20 18:25] LABS: BLOOD UREA NITROGEN 19 mg/dl (7-18); BUN/CREATININE RATIO 17.4 (10-20); CARBON DIOXIDE 30 mmol/L (21-32); CHLORIDE 103 mmol/L (98-107); GLUCOSE 126 mg/dl (70-99); MAGNESIUM 2.3 mg/dl (1.8-2.4); POTASSIUM 3.6 mmol/L (3.5-5.1); SODIUM 140 mmol/L (136-145)
[2017-01-20 18:30] LABS: CKMB/CK RATIO 0.7 (0-3.0)
--- NOTE | 2017-01-20 18:44 | PROGRESS NOTE ---
DATE: 01/20/2017 CHIEF COMPLAINT: Status post right total knee arthroplasty postop day #3. PROGRESS: Angelica was seen and examined at bedside today. She said she was having an awful lot of pain in her right knee. She is very concerned about discharge to home because her has a bad back. She was hoping for discharge to a nursing facility. Otherwise, she has had no problems and no complaints. PHYSICAL EXAMINATION: The incision is clean and dry. The dressing has been changed. She is wearing her thigh high DARYL hose stockings as instructed. She is neurovascularly intact. She is lying with her knee almost in full extension. Vital signs are stable on room air. She is voiding on her own ? has not had a bowel movement yet. IMPRESSION: Status post right total knee arthroplasty postop day #3. PLAN: Will hold on discharge for now and we will look into sending her to a nursing facility such as [facility]. Case management is currently working on that. She can be weightbearing as tolerated. She will do thigh high TEDs, and SCDs for DVT prophylaxis. She states that she is not tolerating the aspirin twice a day very well and she was asking about being placed on aspirin 81 mg daily. I will discuss this with Dr. Bazan. We are currently awaiting placement at a nursing facility.
[2017-01-20 18:45] VITALS: BP 122/64; PULSE 90; TEMP 37.3; O2SAT 94
[2017-01-20] MEDS: RANITIDINE IV 50 MG in DEXTROSE 5% 100ML 100 ML IV SCH (19:45)
--- NOTE | 2017-01-20 21:07 | Medical Consult ---
Consultation Date of Consultation: Jan 20, 2017. Attending Physician: Obed Bazan M.D. Reason for Consultation: epigastric pain/lower chest pain History of Present Illness 81yo female with h/o eosinophilic esophagitis, hypothyroidism and numerous medication/food allergies who underwent right TKR on 01/17/[address] Obed Bazan. The patient has had a fairly uneventful post-op course per records. She reports pain and swelling in the right leg but has been participating with PT. Earlier this afternoon the patient was apparently taking a nap and using her CPAP for MILTON. She was awakened by severe epigastric pain as well as lower chest pain. She denied any shortness of breath, nausea, or diaphoresis. Some of the pain radiated to the anterior neck/lower jaw. She alerted the nursing staff who promptly called a Code Purple. I was nearby the patient's room and came to the Code Purple. Upon arrival the patient was lying in bed, was awake/alert x 3, and complaining of 6/10 pain. She pointed to the high epigastric region/lower chest wall as the location of the pain. Vitals were stable including BP, HR, and O2 sats. EKG was obtained showing NSR with PACs. She was hooked up to the monitor which showed NSR with PACs as well. Even before any medication was administered she reported the pain was already resolving. Just a few minutes after I had arrived it was down to 4/10 on a pain scale. The patient denied any previous episodes of abdominal pain or chest pain this admission. She reported no chest pain or shortness of breath with activity. She mentioned that she saw Dr. Allan Sebastian from [facility] within the last 2 years and had a negative stress test. Denied any family h/o CAD/IL. In total the epigastric pain lasted about 30-40 minutes in total. Past Medical/Surgical History PMH: 1. hypothyroidism 2. eosinophilic esophagitis 3. MILTON on CPAP 4. numerous medication & food allergies 5. chronic rash (eczema?) PSH: 1. T & A as child 2. appendectomy 3. left foot surgery 4. sinus surgery x 2 5. multiple EGDs 6. 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[employer] ) Allergies Coded Allergies: Procaine (Verified Allergy, Severe, NASAL PASSAGE CLOSES UP AND SWELLS NEAR INJECTION, 01/17/17) LIDOCAINE IS OK AND TAKES ANTIHISTAMINE Quinolones (Verified Allergy, Severe, 3 HOURS AFTER TAKING EXP U-SHAPED THROAT AND EAR REACTION, 01/17/17) Nortriptyline (Verified Allergy, Intermediate, UNKNOWN REACTION, 01/17/17) Statins (Verified Allergy, Intermediate, DRUG INDUCED SKIN ERUPTION AND BODY PAIN, 01/17/17) Sulfa Antibiotics (Verified Allergy, Intermediate, DRUG-INDUCED SKIN REACTION, 01/17/17) Cantaloupe (Verified Allergy, Mild, RASH, 01/17/17) [place] Oil (Verified Allergy, Mild, ESOPHAGUS CLOSES, 01/17/17) Diphtheria Toxoid (Verified Allergy, Mild, LOCALIZED REACTION, 01/17/17) IS OK WITH INJECTED INTO HIP Eggs or Egg-derived Products (Verified Allergy, Mild, ESOPHAGUS CLOSES, ) IF EATS EGGS MUST HAVE CLARITIN SHE TOLERATES PROPOPHOL Gadolinium (Verified Allergy, Mild, THROAT SWELLS, DYSPNEA, 01/17/17) Latex1 -Allergic Contact Dermititis (Verified Allergy, Mild, RASH, 01/17/17 ) Mushroom (Verified Allergy, Mild, RASH, 01/17/17) [place] (Verified Allergy, Mild, ESOPHAGUS CLOSES, 01/17/17) Peanut (Verified Allergy, Mild, ESOPHAGUS CLOSES, 01/17/17) Pertussis Vaccine (Verified Allergy, Mild, LOCALIZED REACTION, 01/17/17) IS OK WITH INJECTED INTO HIP Pneumococcal Vaccine (Verified Allergy, Mild, LOCALIZED REACTION, 01/17/17) IS OK WHEN INJECTED INTO HIP Poliomyelitis Vaccine, Inactivated (Verified Allergy, Mild, LOCALIZED REACTION, 01/17/17) IS OK WITH INJECTED INTO HIP Tetanus Toxoid, Adsorbed (Verified Allergy, Mild, LOCALIZED REACTION, 01/17) IS OK WITH INJECTED INTO HIP Turmeric (Verified Allergy, Mild, BLACK AREAS IN VISION, 01/17/17) Wheat (Verified Allergy, Mild, ESOPHAGUS CLOSES AND FOOD STICKS, 01/17/17) Adhesives (Verified Allergy, Unknown, BANDAIDS, 01/17/17) Alendronate (Verified Allergy, Unknown, SKIN ERUPTIONS STARTS THE NEXT AM FOR 1 WK., 01/17/17) Azelastine (Verified Allergy, Unknown, SEVERE HEADACHE- WENT TO ER, ) Dairy (Verified Allergy, Unknown, ALLERGIC TO MILK & DAIRY PRODUCTS, ) Iodine (Verified Allergy, Unknown, APPLIED IODINE CAUSED RASH, 01/17/17) Levofloxacin (Verified Allergy, Unknown, U-SHAPED THROAT & EAR RXN. 3 HRS AFTER 1ST TABLET., 01/17/17) BOTH CIPRO AND LEVAQUIN CAUSED THE ABOVE REACTION. NSAIDs (Verified Allergy, Unknown, HIGH BP, HIVES OR RASH, 01/17/17) Omeprazole (Verified Allergy, Unknown, SWELLING UNDER EYES, SOB, SKIN ERUPTION UNDER EYE AND FOOT, 01/17/17) Pantoprazole (Verified Allergy, Unknown, HIGH BP, 01/17/17) Raloxifene (Verified Allergy, Unknown, LEG CRAMPS, 01/17/17) Risedronate (Verified Allergy, Unknown, HIGH BP, 01/17/17) CI Pigment Blue 63 (Verified Adverse Reaction, Intermediate, HEADACHE, DIZZY SPELLS, LOST BALANCE TWICE, 01/05/17) Caffeine (Verified Adverse Reaction, Intermediate, ELEVATES BP, 01/17/17) Duloxetine (Verified Adverse Reaction, Intermediate, HEADACHE,DIZZY SPELLS , LOST BALANCE TWICE, 01/17/17) Fluconazole (Verified Adverse Reaction, Intermediate, RACING HEARTBEAT AND DIZZY SPELLS, 01/17/17) Gabapentin (Verified Adverse Reaction, Intermediate, HEADACHE, EYE PROBLEMS, DIZZINESS, 01/17/17) Phenylpropanolamine (Verified Adverse Reaction, Intermediate, ELEVATES BP , 01/17/17) Uncoded Allergies: PERSIMMONS (Allergy, Mild, RASH, 01/05/17) Home Medications Reported Home Medications Medications Dose Route/Sig Max Daily Dose Days Date Category Dose Instructions Oxycodone HCl 5 Mg Tab 5 Mg PO Q4H PRN 30 01/18/17 Rx Take to as needed for Pain. Aspirin 325 Mg Ectab 325 Mg PO BID 45 01/18/17 Rx Take to prevent blood clots. Tylenol Extra Strength (Acetaminophen) 500 Mg Tab 1,000 Mg PO Q8 30 01/18/17 Rx Take 3 times per day to lessen pain. Glucosamine Chondroitin (Qghduxtlxys-Bqhcoxhoswt-Kvx C-) 1 Tab Tab 1 Dose PO QAM 01/05/17 Reported LIQUID Flaxseed Oil (Flaxseed (Linseed)) 1 Cap Cap 1 Cap PO QAM 01/05/17 Reported Calcium 500 Mg Tab 1,000 Mg PO QAM 01/05/17 Reported Vitamin D (Cholecalciferol) 1,000 Unit Tab 1 Tab PO QAM 01/05/17 Reported Fluocinolone Acetonide (Fluocinolone Acetonide (Otic)) 0.01 % Oil 1 Dose OTB DAILY PRN 01/05/17 Reported Triamcinolone Acetonide (Triamcinolone Acet) 45 Appln/15 Gm Oint 1 Appln TOP BID PRN 01/05/17 Reported Ammonium Lactate Cream 12% (Lactic Acid) 280 Gm Cr 1 Dose TOP DAILY PRN 01/05/17 Reported Synthroid (Levothyroxine Sodium) 25 Mcg Tab 25 Mcg PO QAM 01/05/17 Reported Excedrin Pm (Diphenhydramine-Acetaminophen) 1 Tab Tab Unknown Dose PO PRN 10/18/15 Reported Claritin (Loratadine) 10 Mg Tab 10 Mg PO DAILY PRN 10/18/15 Reported Tylenol (Acetaminophen) 325 Mg Tab 325 Mg PO 10/18/15 Reported Tums (Calcium Carbonate) 500 Mg Chew 500 Mg PO PRN 10/18/15 Reported Nephrocaps (Vitamin B Complex/Vit C/Folic Acid) Cap 1 Cap PO QAM 10/18/15 Reported Current Inpatient Medications Current Inpatient Medications Medications (Trade) Dose Ordered Sig/Júnior Route Start Time Stop Time Status Last Admin Dose Admin Ondansetron HCl (Zofran Inj) 4 mg ONE PRN IV 01/17/17 08:15 Oxycodone HCl (Roxicodone Immediate Rel Tab) 5 mg Q4H PRN PO 01/17/17 11:30 01/31/17 11:29 01/20/17 10:33 5 MG Acetaminophen (Tylenol Tab) 1,000 mg Q8 PO 01/17/17 14:00 02/16/17 13:59 01/19/17 21:33 500 MG Magnesium Hydroxide (Milk Of Magnesia Susp) 30 ml Q6H PRN PO 01/17/17 11:30 02/16/17 11:29 Bisacodyl (Dulcolax Supp) 10 mg DAILY PRN PA 01/17/17 11:30 02/16/17 11:29 Docusate Sodium (coLACE CAP) 100 mg BID PO 01/17/17 21:00 02/16/17 20:59 01/20/17 09:28 100 MG Diphenhydramine HCl (Benadryl Cap) 25 mg Q8H PRN PO 01/17/17 11:30 02/16/17 11:29 Diphenhydramine HCl (Benadryl Inj) 25 mg Q8H PRN IV 01/17/17 11:30 02/16/17 11:29 Al Hydrox/Mg Hydrox/Simethicone (Maalox Max Susp) 15 ml Q4H PRN PO 01/17/17 11:30 02/16/17 11:29 01/20/17 16:42 30 ML Zolpidem Tartrate (Ambien Tab) 5 mg HSZ PRN PO 01/17/17 11:30 02/16/17 11:29 Multivitamins (Multivitamin Tab) 1 tab QAM PO 01/18/17 09:00 02/17/17 08:59 01/19/17 09:16 1 TAB Ondansetron HCl (Zofran Inj) 4 mg Q6H PRN IV 01/17/17 11:30 02/16/17 11:29 Metoclopramide HCl (Reglan Inj) 10 mg Q6H PRN IV 01/17/17 11:30 02/16/17 11:29 Ferrous Gluconate (Ferrous Gluconate Tab) 324 mg TIDM PO 01/17/17 17:45 02/16/17 17:44 01/19/17 14:31 324 MG Calcium Carbonate (Tums Chew Tab) 500 mg Q8H PRN PO 01/17/17 11:30 02/16/17 11:29 Cholecalciferol (Vitamin D Tab) 800 inter.unit QAM PO 01/18/17 09:00 02/17/17 08:59 01/19/17 09:16 800 INTER.UNIT Levothyroxine Sodium (Synthroid Tab) 25 mcg DAILYBB PO 01/18/17 06:00 02/17/17 05:59 01/20/17 05:55 25 MCG Loratadine (Claritin Tab) 10 mg DAILY PRN PO 01/17/17 11:30 02/16/17 11:29 Triamcinolone Acetonide (Kenalog 0.1% Oint) 1 appln BID PRN TOP 01/17/17 11:30 02/16/17 11:29 Vitamin B Complex/ Vit C/Folic Acid (Nephrocaps) 1 cap QAM PO 01/18/17 09:00 02/17/17 08:59 01/20/17 09:28 1 CAP Calcium Carbonate (oS-Conrad 500 TAB) 2,500 mg QAM PO 01/18/17 09:00 02/17/17 08:59 01/19/17 09:16 2,500 MG Miscellaneous Information (Order Awaiting Action) 1 ea QS N/A 01/17/17 14:00 02/16/17 13:59 Ammonium Lactate (Lac-Hydrin) 1 appl DAILY PRN EXT 01/17/17 14:00 02/16/17 13:59 Hydromorphone HCl (Dilaudid Inj) 0.5 mg Q1H PRN IV 01/17/17 11:30 01/31/17 11:29 01/17/17 21:09 0.5 MG Aspirin 81 mg 81 mg QAM PO 01/21/17 09:00 02/20/17 08:59 01/20/17 10:33 81 MG Ranitidine HCl/ Dextrose (zANTac IV/D5 100ml) 102 ml @ 200 mls/hr Q8H IV 01/20/17 17:15 02/19/17 17:14 UNV Review of Systems Constitutional: + fever, No chills Eyes: No worsening of vision ENT: + sore throat (since the surgery), No nasal symptoms, No trouble swallowing Respiratory: No cough, No dyspnea on exertion, No shortness of breath, No sputum, No wheezing Cardiovascular: + chest pain, No PND, No edema, No orthopnea, No palpitations Abdomen: + constipation, + pain, No GI bleeding, No diarrhea, No nausea, No vomiting Musculoskeletal: + joint pain (right knee), + swelling (right leg), No muscle pain Genitourinary - Female: No dysuria Neurologic: No numbness/tingling Psychiatric: No depression symptoms Hematologic / Lymphatic: + abnormal bleeding/bruising (right leg) Integumentary: + rash Allergic / Immunologic: + environmental allergies, + food allergies, + seasonal allergies Physical Exam Date Time Temp Pulse Resp B/P Pulse Ox O2 Delivery O2 Flow Rate FiO2 01/20/17 16:17 86 152/77 01/20/17 15:08 37.5 92 16 124/67 93 Room Air 01/20/17 07:47 37.7 92 18 140/61 96 CPAP 01/19/17 23:11 37.7 83 16 149/65 95 Room Air 01/19/17 20:20 Room Air General Appearance: WD/WN, no apparent distress Head: normocephalic, atraumatic Eyes: PERRL ENT: pharynx normal Neck: no JVD Respiratory/Chest: chest non-tender, lungs clear, normal breath sounds, no respiratory distress, no accessory muscle use Cardiovascular: no gallop, no JVD, no murmur, normal peripheral pulses, + extra beats, + pertinent finding (irregular ) Abdomen/GI: normal bowel sounds, soft, no organomegaly, + tenderness ( epigastric region ) Back: normal inspection Extremities/Musculoskelatal: + pedal edema (right foot), + swelling (right leg) , + pertinent finding (right knee incision with hudson intact; ecchymoses about the knee) Neurologic/Psych: alert, normal mood/affect, oriented x 3 Skin: no rash Lymphatic: no adenopathy (no cervical lymphadenopathy ) Laboratory Results 01/20/17 17:46 Red Blood Count 2.76, Mean Corpuscular Volume 96.7, Mean Corpuscular Hemoglobin 32.6, Mean Corpuscular Hemoglobin Concent 33.7, Mean Platelet Volume 11.0, Neutrophils (%) (Auto) 73.7, Lymphocytes (%) (Auto) 14.6, Monocytes (%) (Auto) 9.4, Eosinophils (%) (Auto) 1.8, Basophils (%) (Auto) 0.4, Neutrophils # (Auto) 5.75, Lymphocytes # (Auto) 1.14, Monocytes # (Auto) 0.73, Eosinophils # (Auto) 0.14, Basophils # (Auto) 0.03 01/20/17 17:46 Test 01/20/17 17:46 White Blood Count 7.80 K/uL (4.8-10.8) Red Blood Count 2.76 M/uL (4.2-5.4) Hemoglobin 9.0 g/dL (12.0-16.0) Hematocrit 26.7 % (37-47) Mean Corpuscular Volume 96.7 fL (80-100) Mean Corpuscular Hemoglobin 32.6 pg (25-34) Mean Corpuscular Hemoglobin Concent 33.7 g/dl (32-36) Platelet Count 177 K/uL (130-400) Mean Platelet Volume 11.0 fL (7.4-10.4) Neutrophils (%) (Auto) 73.7 % Lymphocytes (%) (Auto) 14.6 % Monocytes (%) (Auto) 9.4 % Eosinophils (%) (Auto) 1.8 % Basophils (%) (Auto) 0.4 % Neutrophils # (Auto) 5.75 K/uL (1.4-6.5) Lymphocytes # (Auto) 1.14 K/uL (1.2-3.4) Monocytes # (Auto) 0.73 K/uL (0.11-0.59) Eosinophils # (Auto) 0.14 K/uL (0-0.5) Basophils # (Auto) 0.03 K/uL (0-0.2) RDW Standard Deviation 48.7 fL (36.4-46.3) RDW Coefficient of Variation 13.9 % (11.5-14.5) Immature Granulocyte % (Auto) 0.1 % Immature Granulocyte # (Auto) 0.01 K/uL (0.00-0.02) Anion Gap 7.0 mmol/L (3-11) Est Creatinine Clear Calc Drug Dose 45.4 ml/min Estimated GFR () 55.3 Estimated GFR (Non- 47.7 BUN/Creatinine Ratio 17.4 (10-20) Calcium Level 8.0 mg/dl (8.5-10.1) Magnesium Level 2.3 mg/dl (1.8-2.4) Total Creatine Kinase 135 U/L (26-192) Creatine Kinase MB 0.9 ng/ml (0.5-3.6) Creatine Kinase MB Ratio 0.7 (0-3.0) Troponin I < 0.015 ng/ml (0-0.045) EKG - my reading - NSR with PACs, no acute ST changes; no change in comparison to prior EKG Assessment & Plan 81yo female with hypothyroidism, MILTON, and eosinophilic esophagitis who underwent right TKR several days ago. She had an episode earlier today of epigastric pain/lower chest pain with radiation to the jaw/neck. During my assessment her pain was resolving without any intervention. Initial examination revealed epigastric tenderness. 1. chest pain/epigastric pain - differential includes cardiac vs pulmonary vs GI. Favor latter in light of the abdominal tenderness on examination and her prior h/o esophagitis. We also gave a dose of maalox shortly after the episode which resolved her symptoms quickly. Doubt PE given the lack of pulmonary symptoms, stable vitals/ O2 sats, etc. Plan to transfer to telemetry for closer monitoring, serial cardiac enzymes x 3 sets (first set was negative), repeat cbc/bmp/mag, and place on IV zantac (she has multiple PPI allergies/intolerance). 2. MILTON - continue CPAP. 3. hypothyroidism - recent TSH was normal. Cont synthroid. 4. eosinophilic esophagitis - no recent dysphagia or odynophagia. See #1 above. 5. DVT proph - per primary orthopedic service. 6. acute blood loss anemia 2nd to right TKR - will need iron supplementation at discharge. No indication for PRBC infusion at this time. Plan of care discussed with Dr. Flores by phone. Thank you for this consult. We will follow with you. Rudy Crabtree MD Additional Copies To Joe Clay M.D.
[2017-01-20] MEDS: POLYETHYLENE (MIRALAX) 17 GM PACK PO SCH (22:47)
[2017-01-20 23:10] VITALS: BP 157/69; PULSE 82; TEMP 37.7; O2SAT 95
[2017-01-21 01:16] LABS: CKMB/CK RATIO 0.6 (0-3.0)
[2017-01-21] MEDS: RANITIDINE IV 50 MG in DEXTROSE 5% 100ML 100 ML IV SCH ×3 (01:49→10:06)
[2017-01-21 03:04] VITALS: BP 146/65; PULSE 84; TEMP 37.3; O2SAT 93
[2017-01-21] MEDS: ACETAMINOPHEN 500 MG TAB PO SCH ×2 (05:05→13:38)
[2017-01-21 07:16] LABS: HEMATOCRIT 24.1 % (37-47)
[2017-01-21 07:35] VITALS: BP 125/59; PULSE 77; TEMP 36.9; O2SAT 95
[2017-01-21] MEDS: FERROUS GLUCONATE 324 MG TAB PO SCH ×2 (07:38→12:33)
[2017-01-21 07:43] LABS: CKMB/CK RATIO 0.7 (0-3.0)
[2017-01-21] MEDS ORDERED: FRRG PO (07:50)
[2017-01-21] MEDS: ASPIRIN 81 MG ECTAB PO SCH (07:51)
[2017-01-21] MEDS: MULTIVITAMIN TAB PO SCH (07:51)
[2017-01-21] MEDS: CHOLECALCIFEROL 400 INTER.UNIT TAB PO SCH (07:52)
[2017-01-21] MEDS: POLYETHYLENE (MIRALAX) 17 GM PACK PO SCH (07:52)
[2017-01-21] MEDS: CALCIUM CARBONATE 1250MG TAB PO SCH (07:52)
--- NOTE | 2017-01-21 08:20 | PROGRESS NOTE ---
DATE: 01/21/2017 SUBJECTIVE: A 81-year-old white female, postop day 4 from a right total knee replacement. She is doing a little bit better. She is still having quite a bit of knee pain, but getting a little bit better each day. She had an episode of chest pain yesterday and was sent down to the PCU. Fairly, a brief episode and it has resolved. She denies any current chest pain. Not feeling dizzy or lightheaded. OBJECTIVE: VITAL SIGNS: Temperature 36.9. Vital signs are stable. GENERAL: Reveals a pleasant elderly female. She was talking on the phone when I went in to visit her this morning. LUNGS: Clear to auscultation. HEART: Has regular rate and rhythm. ABDOMEN: Soft, nontender and nondistended. EXTREMITIES: Grossly neurovascularly intact except as follows: Examination of the right lower extremity reveals the leg to be well-aligned. Dressing is in place. There is just a small bit of bloody drainage. She can dorsiflex and plantarflex her foot appropriately. She is neurologically intact. LABORATORY DATA: Hemoglobin 8.1. Hematocrit 24.1. All her cardiac enzymes have come back as normal. ASSESSMENT: A 81-year-old white female, postoperative day #4 from a right total knee replacement, doing pretty well. Had an episode of chest pain, which has resolved; etiology unclear. This certainly could be related to reflux. Her cardiac workup has been negative. She now feels that her pain is improved. She is getting around better and would like to consider going home. PLAN: 1. PT/OT. Weightbear as tolerated. 2. Right total knee protocol. 3. Pain control, doing pretty well with current pain regimen. I did offer additional pain medicines, but she would like to stick with the Tylenol and the oxycodone. 4. Medical management as per the medicine service. 5. Disposition. She would now like to be discharged to home with some home health. She is still anemic, but asymptomatic. Her hemoglobin is relatively stable. No other additional sources of bleeding and she is asymptomatic. 6. We will see how things go this morning and if doing OK we will try and get her home this afternoon. SANDEEP
[2017-01-21] MEDS: LEVOTHYROXINE 25 MCG TAB PO SCH (08:24)
[2017-01-21] MEDS: DOCUSATE SODIUM 100 MG CAP PO SCH (08:24)
[2017-01-21] MEDS: NEPHROCAPS PO SCH (08:24)
[2017-01-21] MEDS ORDERED: RANITIDINE HCL 150 MG TAB PO ONE (11:30)
[2017-01-21] MEDS: OXYCODONE HCL IR 5 MG TAB (IMMEDIATE RELEASE) PO PRN ×2 (11:52)
[2017-01-21 12:07] VITALS: BP 131/61; PULSE 79; TEMP 37.3; O2SAT 95
[2017-01-21] MEDS ORDERED: ZNT150 PO (12:45)
[2017-01-21 13:28] VITALS: BP 131/61; PULSE 79; TEMP 37.3; O2SAT 95
--- NOTE | 2017-01-21 18:50 | Medical Consult ---
Consultation Note Date of Service Jan 21, 2017. Consultation Note 1845 S: no events overnight. telemetry with PACs only. she had no further epigastric pain or chest pain. no issues w/ IV zantac. she c/o right knee pain, swelling, and considerable ecchymoses of the thigh extending up to the right hip region. she states "I bruise easily" moving bowels. O: VSS, afebrile, BP/HR nl o2 sats nl gen - NAD, looks well neck - no JVD heart - RR, extra beats, s1, s2 lungs - CTA b/l abd - scant tenderness epigastric region, BS+, ND, soft ext - swelling of right thigh and right lower extremity; ecchymoses extending from the proximal medial thigh down to below the knee left leg w/o edema skin - hudson intact right knee rectal - chaperoned by staff - copious stool, brown in color, heme negative, no masses labs - 01/21/17 06:46 Test 01/21/17 00:00 01/21/17 06:46 Stool Occult Blood NEGATIVE (NEGATIVE) Total Creatine Kinase 127 U/L (26-192) Creatine Kinase MB 0.9 ng/ml (0.5-3.6) Creatine Kinase MB Ratio 0.7 (0-3.0) Troponin I < 0.015 ng/ml (0-0.045) Cardiac enzymes neg x 3 sets A/P: 1. epigastric and chest pain yesterday - resolved within 30-45 minutes. Cardiac biomarkers normal. Telemetry with sinus arrhythmia and PACs only. Suspect, in light of abdominal discomfort, that this was GI related. In light of eosinophilic esophagitis and tendency towards GI issues recommended zantac 150 BID (she cannot tolerate PPIs). 2. acute blood loss anemia - 2nd to TKR on right along with tracking of blood within the thigh. Her stool today is HEME NEGATIVE. Send home with ferrous sulfate twice daily and take for at least 2 months. Recommended repeat CBC in 5 days for stability. HR/BP wnl despite the issue and she reports no cardiopulmonary symptoms. 3. easy bruising - recent coags normal. likely due to aspirin usage. vit C deficiency is possible but not common. [id number], in light of need to take iron, recommended vitamin C 500mg twice daily before she takes her iron to help w/ absorption. I spoke with Dr. Bazan and updated him on my findings. From medical standpoint can d/c home. Again repeat CBC in 5 days recommended. Rudy Crabtree MD
[2017-01-21] MEDS ORDERED: RANITIDINE HCL 150 MG TAB PO SCH (21:00)
--- NOTE | 2017-01-24 16:35 | DISCHARGE SUMMARY ---
ADMITTING PHYSICIAN AND SURGEON: Dr. Bazan. ADMITTING DIAGNOSIS: Failed partial knee replacement, progression of arthritis. PROCEDURE PERFORMED: Right revision total knee arthroplasty with conversion of a partial knee for full knee replacement. SECONDARY DIAGNOSES: Include multiple allergies, hypertension, sleep apnea, hypothyroidism, gastroesophageal reflux disease, hiatal hernia, and esophagitis. CONSULTS: Dr. Crabtree for chest pain postoperatively. HISTORY AND PHYSICAL EXAMINATION: Well documented in the patient's chart. HOSPITAL COURSE: The patient was admitted on 01/17/2017 underwent conversion of a partial knee to a total knee replacement. She tolerated the procedure well. There were no complications. She was transferred to PACU postoperatively and later to the orthopedic floor for further care. She was given Ancef for antibiotic prophylaxis, DARYL stockings, SCDs and aspirin for DVT prophylaxis. Hemoglobin, hematocrit and vital signs were monitored during her hospital stay. She did develop some postoperative anemia with hemoglobin down to 8.1, but remained asymptomatic, did not require any blood transfusions. On postoperative day 3, she did have an episode of epigastric pain. Dr. Crabtree was consulted and she was then transferred to the telemetry where she had cardiac enzymes and other labs obtained. They also ordered IV Zantac for her. Her symptoms did resolve. She had no further chest pain during her hospital stay. Her cardiac workup was negative and the symptoms were felt to be GI related. There were no complications during her hospital stay. By postoperative day 4, she was tolerating a general diet. Pain was controlled with oral pain medicine. She was participating in physical therapy and had no signs or symptoms of deep vein thrombosis. On postop day 4, she was discharged home to set up with home health services. She was given printed discharge instructions including prescriptions for Extra-Strength Tylenol, aspirin 325 mg b.i.d., iron supplement, oxycodone, ranitidine. Continue her home medications with the exception of her home doses of Tylenol and Excedrin, which were stopped. Continue physical therapy, weightbearing as tolerated and DARYL stockings. Follow up in 10-12 days or sooner if there are any problems or concerns.
[2017-02-10] MEDS ORDERED: RIVA1TAB4 PO (09:25)
[2017-02-10] MEDS ORDERED: XRL15 PO (09:25)
[2017-02-10] MEDS ORDERED: ULT50X PO (09:25)
[2017-06-12] MEDS ORDERED: ACET-1311 PO (13:38)
[2017-06-27] MEDS ORDERED: CEPH500C2 PO (08:14)
[2017-06-27] MEDS ORDERED: OXYC-57 PO (08:14)
== END 2017-01-21 14:19 | disposition home or self-care (01) | DRG 467 ==
LOC: ENRESERVTM → ENRESERVDT → C.ACU 06:33 → C.MSN 06:40 → C.2T 01-20 18:47
PROVIDERS: ADMIT Orthopaedic Surgery Sports Medicine; ATTEND Orthopaedic Surgery Sports Medicine
PROC: 0SPC0JZ Removal of Synthetic Substitute from Right Knee Joint, Open Approach (ICD-10-PCS; principal; 2017-01-17 08:45)
PROC: 0SRC0J9 Replacement of Right Knee Joint with Synthetic Substitute, Cemented, Open Approach (ICD-10-PCS; principal; 2017-01-17 08:45)
DX: T84.092A Other mechanical complication of internal right knee prosthesis, initial encounter (principal); D62 Acute posthemorrhagic anemia; I10 Essential (primary) hypertension; E03.9 Hypothyroidism, unspecified; K21.9 Gastro-esophageal reflux disease without esophagitis; Z90.49 Acquired absence of other specified parts of digestive tract; Z96.652 Presence of left artificial knee joint; Z88.6 Allergy status to analgesic agent; Z88.8 Allergy status to other drugs, medicaments and biological substances; Z88.2 Allergy status to sulfonamides; Z91.041 Radiographic dye allergy status; Z91.011 Allergy to milk products; Z91.012 Allergy to eggs; Z91.018 Allergy to other foods; Z79.899 Other long term (current) drug therapy; Z82.49 Family history of ischemic heart disease and other diseases of the circulatory system; Y83.1 Surgical operation with implant of artificial internal device as the cause of abnormal reaction of the patient, or of later complication, without mention of misadventure at the time of the procedure; G47.33 Obstructive sleep apnea (adult) (pediatric)

== ENCOUNTER 2017-02-09 18:28 | Inpatient (IN) | payer BC, OTHER ==
[~2017-02-09] VITALS: Ht 172.7 cm; Wt 71.9 kg
[~2017-02-09 18:28] MED LIST changes: -ACET-1311 PO; -CEPH500C2 PO; -OPTIRAY 320 IV PRN; -OXYC-57 PO; -RIVA1TAB4 PO; -ULT50X PO; -XRL15 PO
[2017-02-09] MEDS ORDERED: ACETAMINOPHEN 325 MG TAB PO PRN (19:00)
[2017-02-09] MEDS ORDERED: TRIAMCINOLONE ACET 0.1% OINT 15 GM TUBE TOP PRN (19:00)
[2017-02-09] MEDS ORDERED: ONDANSETRON INJ 2 MG/ML 2 ML VIAL IV PRN (19:00)
[2017-02-09] MEDS ORDERED: OXYCODONE HCL IR 5 MG TAB (IMMEDIATE RELEASE) PO PRN (19:00)
[2017-02-09] MEDS ORDERED: LORATADINE 10 MG TAB PO PRN (19:00)
--- NOTE | 2017-02-09 19:21 | History and Physical ---
History & Physical Date & Time of Service: Feb 09, 2017 at 19:11 Chief Complaint: Acute Dvt Primary Care Physician: Joe Clay M.D. History of Present Illness Source: patient, clinic records, hospital records 81 yo female with recent history of revision of right partial knee arthroplasty to total knee arthroplasty on 01/17. She was discharged on 01/24. In the past few days she developed some right knee pain, swelling and calf pain and swelling. A doppler showed acute DVT in right popliteal vein as well as below the knee. No DVT in the proximal veins or on the left side. She did have some chest pain so her PCP ordered a CTA of the chest that was negative for a DVT. The case is complicated by the fact that she has a h/o nose bleeds on aspirin. She was given aspirin for DVT prophylaxis around surgery but when the dose was increased to 325mg she had a bleed and had to stop the aspirin. Discussed the case with her PCP and agreed that it would be safest to start anticoagulation here in the hospital. Patient says she had nosebleeds as a child and needed them cauterized but then she has not had a nosebleed in 40 + years until today. The bleeding was not severe, just some blood when she blew her nose, did not have blood running down her nose, did not need pressure. She also admits to some bleeding gums in the past if she took aspirin. She thinks that she was tested for "bleeding issues" and everything was normal. She thinks her father had bleeding issues. Past Medical/Surgical History PMH: 1. hypothyroidism 2. eosinophilic esophagitis 3. MILTON on CPAP 4. numerous medication & food allergies 5. chronic rash (eczema?) PSH: 1. T & A as child 2. appendectomy 3. left foot surgery 4. sinus surgery x 2 5. multiple EGDs 6. b/l knee surgeries 7. revision right knee to a TKA on 01/17 Family History Family History father - pacemaker, unknown bleeding disorder mother - in her 90s no family h/o CAD Social History Smoking Status: Never Smoker Drug Use: none Marital Status: Occupational Status: retired Immunizations History of Influenza Vaccine: Yes History of Tetanus Vaccine?: Yes History of Pneumococcal: Yes History of Hepatitis B Vaccine: Yes Multi-Drug Resistant Organisms History of MDRO: No Allergies Coded Allergies: Procaine (Verified Allergy, Severe, NASAL PASSAGE CLOSES UP AND SWELLS NEAR INJECTION, 01/17/17) LIDOCAINE IS OK AND TAKES ANTIHISTAMINE Quinolones (Verified Allergy, Severe, 3 HOURS AFTER TAKING EXP U-SHAPED THROAT AND EAR REACTION, 01/17/17) Nortriptyline (Verified Allergy, Intermediate, UNKNOWN REACTION, 01/17/17) Statins (Verified Allergy, Intermediate, DRUG INDUCED SKIN ERUPTION AND BODY PAIN, 01/17/17) Sulfa Antibiotics (Verified Allergy, Intermediate, DRUG-INDUCED SKIN REACTION, 01/17/17) Cantaloupe (Verified Allergy, Mild, RASH, 01/17/17) [place] Oil (Verified Allergy, Mild, ESOPHAGUS CLOSES, 01/17/17) Diphtheria Toxoid (Verified Allergy, Mild, LOCALIZED REACTION, 01/17/17) IS OK WITH INJECTED INTO HIP Eggs or Egg-derived Products (Verified Allergy, Mild, ESOPHAGUS CLOSES, ) IF EATS EGGS MUST HAVE CLARITIN SHE TOLERATES PROPOPHOL Gadolinium (Verified Allergy, Mild, THROAT SWELLS, DYSPNEA, 01/17/17) Latex1 -Allergic Contact Dermititis (Verified Allergy, Mild, RASH, 01/17/17 ) Mushroom (Verified Allergy, Mild, RASH, 01/17/17) [place] (Verified Allergy, Mild, ESOPHAGUS CLOSES, 01/17/17) Peanut (Verified Allergy, Mild, ESOPHAGUS CLOSES, 01/17/17) Pertussis Vaccine (Verified Allergy, Mild, LOCALIZED REACTION, 01/17/17) IS OK WITH INJECTED INTO HIP Pneumococcal Vaccine (Verified Allergy, Mild, LOCALIZED REACTION, 01/17/17) IS OK WHEN INJECTED INTO HIP Poliomyelitis Vaccine, Inactivated (Verified Allergy, Mild, LOCALIZED REACTION, 01/17/17) IS OK WITH INJECTED INTO HIP Tetanus Toxoid, Adsorbed (Verified Allergy, Mild, LOCALIZED REACTION, 01/17) IS OK WITH INJECTED INTO HIP Turmeric (Verified Allergy, Mild, BLACK AREAS IN VISION, 01/17/17) Wheat (Verified Allergy, Mild, ESOPHAGUS CLOSES AND FOOD STICKS, 01/17/17) Adhesives (Verified Allergy, Unknown, BANDAIDS, 01/17/17) Alendronate (Verified Allergy, Unknown, SKIN ERUPTIONS STARTS THE NEXT AM FOR 1 WK., 01/17/17) Azelastine (Verified Allergy, Unknown, SEVERE HEADACHE- WENT TO ER, ) Dairy (Verified Allergy, Unknown, ALLERGIC TO MILK & DAIRY PRODUCTS, ) Iodine (Verified Allergy, Unknown, APPLIED IODINE CAUSED RASH, 01/17/17) Levofloxacin (Verified Allergy, Unknown, U-SHAPED THROAT & EAR RXN. 3 HRS AFTER 1ST TABLET., 01/17/17) BOTH CIPRO AND LEVAQUIN CAUSED THE ABOVE REACTION. NSAIDs (Verified Allergy, Unknown, HIGH BP, HIVES OR RASH, 01/17/17) Omeprazole (Verified Allergy, Unknown, SWELLING UNDER EYES, SOB, SKIN ERUPTION UNDER EYE AND FOOT, 01/17/17) Pantoprazole (Verified Allergy, Unknown, HIGH BP, 01/17/17) Raloxifene (Verified Allergy, Unknown, LEG CRAMPS, 01/17/17) Risedronate (Verified Allergy, Unknown, HIGH BP, 01/17/17) CI Pigment Blue 63 (Verified Adverse Reaction, Intermediate, HEADACHE, DIZZY SPELLS, LOST BALANCE TWICE, 01/05/17) Caffeine (Verified Adverse Reaction, Intermediate, ELEVATES BP, 01/17/17) Duloxetine (Verified Adverse Reaction, Intermediate, HEADACHE,DIZZY SPELLS , LOST BALANCE TWICE, 01/17/17) Fluconazole (Verified Adverse Reaction, Intermediate, RACING HEARTBEAT AND DIZZY SPELLS, 01/17/17) Gabapentin (Verified Adverse Reaction, Intermediate, HEADACHE, EYE PROBLEMS, DIZZINESS, 01/17/17) Phenylpropanolamine (Verified Adverse Reaction, Intermediate, ELEVATES BP , 01/17/17) Uncoded Allergies: PERSIMMONS (Allergy, Mild, RASH, 01/05/17) Home Medications Scheduled Acetaminophen (Tylenol Extra Strength), 1,000 MG PO Q8 Aspirin (Aspirin), 325 MG PO BID Calcium (Calcium), 1,000 MG PO QAM Cholecalciferol (Vitamin D), 1 TAB PO QAM Ferrous Gluconate (Ferrous Gluconate), 324 MG PO DAILY Flaxseed (Linseed) (Flaxseed Oil), 1 CAP PO QAM Ovmyhcytifg-Keasmqjpoot-Uat C- (Glucosamine Chondroitin), 1 DOSE PO QAM Levothyroxine Sodium (Synthroid), 25 MCG PO QAM Ranitidine HCl (Ranitidine HCl), 150 MG PO BID Vitamin B Cmplx/Vitc/Folic Ac (Nephrocaps), 1 CAP PO QAM Scheduled PRN Calcium Carbonate (Tums), 500 MG PO for GI Upset Fluocinolone Acetonide (Otic) (Fluocinolone Acetonide), 1 DOSE OTB DAILY PRN for ITCHY EARS Lactic Acid (Ammonium Lactate Cream 12%), 1 DOSE TOP DAILY PRN for ITCHING ON BACK Loratadine (Claritin), 10 MG PO DAILY PRN for ALLERGIC REACTION Oxycodone HCl (Oxycodone HCl), 5 MG PO Q4H PRN for Pain Triamcinolone Acet (Triamcinolone Acetonide), 1 APPLN TOP BID PRN for RASH Review of Systems Constitutional: No chills, No fatigue, No fever, No problem reported, No sweats , No weakness, No weight loss Eyes: No diplopia, No discharge, No eye pain, No problem reported, No redness, No worsening of vision ENT: + unusual epistaxis (on aspirin), No dental problems, No hearing loss, No nasal symptoms, No problem reported, No sore throat, No tinnitus, No trouble swallowing Respiratory: No cough, No dyspnea at rest, No dyspnea on exertion, No hemoptysis, No problem reported, No shortness of breath, No sputum, No wheezing Cardiovascular: + chest pain, No PND, No claudication, No edema, No orthopnea, No palpitations, No problem reported Abdomen: No GI bleeding, No constipation, No diarrhea, No nausea, No pain, No problem reported, No vomiting Musculoskeletal: + calf pain (right), + joint pain (right knee), No muscle pain , No problem reported, No swelling Genitourinary - Female: No dysuria, No hematuria, No urinary frequency, No urinary incontinence, No urinary retention, No urinary urgency Neurologic: No balance problems, No memory loss, No numbness/tingling, No paralysis, No problem reported, No vertigo, No weakness Psychiatric: No anhedonism, No anxiety, No depression symptoms, No insomnia, No problem reported, No substance abuse Endocrine: No excessive thirst, No excessive urination, No fatigue, No problem reported Hematologic / Lymphatic: No abnormal bleeding/bruising, No clotting problems, No night sweats, No problem reported, No swollen lymph nodes Integumentary: No bleeding, No color change, No itch, No new/changing skin lesions, No problem reported, No rash Allergic / Immunologic: No environmental allergies, No food allergies, No frequent infections, No hives, No pet sensitivities, No poor healing, No problem reported, No prolonged convalescence, No seasonal allergies Physical Exam General Appearance: WD/WN, no apparent distress Head: normocephalic, atraumatic Eyes: normal inspection, EOMI, sclerae normal ENT: normal ENT inspection, hearing grossly normal, pharynx normal Neck: supple, no adenopathy, no JVD, trachea midline Respiratory/Chest: chest non-tender, lungs clear, normal breath sounds, no respiratory distress, no accessory muscle use Cardiovascular: regular rate, rhythm, no edema, no gallop, no JVD, no murmur, normal peripheral pulses Abdomen/GI: normal bowel sounds, non tender, soft, no organomegaly Back: normal inspection, no CVA tenderness, no muscle spasm, normal range of motion Extremities/Musculoskelatal: normal capillary refill, no pedal edema, normal range of motion, pelvis stable, + calf tenderness (right), + swelling (right knee) Neurologic/Psych: can doffer II-XII nml as tested, no motor/sensory deficits, alert, normal mood/affect, normal reflexes, oriented x 3 Skin: normal color, warm/dry, no rash Lymphatic: no adenopathy Diagnostics Diagnostic Radiology CT ANGIOGRAM OF THE CHEST CLINICAL HISTORY: Dyspnea. Recent surgery. COMPARISON STUDY: Chest x-ray dated 01/05/2017. TECHNIQUE: Following the IV administration of 86 cc of Optiray 320, CT angiogram of the chest was performed from the upper abdomen to the thoracic inlet utilizing the pulmonary embolus protocol. Images are reviewed in the axial, sagittal, and coronal planes. 3-D MIPS images are created and assessed. IV contrast was administered without complication. CT DOSE: 255.54 mGy.cm FINDINGS: Thyroid: Imaged portions of the thyroid gland are normal in size and attenuation. Thoracic aorta: The thoracic aorta is normal in caliber and demonstrates 4-vessel there arch anatomy. No dissection is seen. Pulmonary vasculature: The pulmonary trunk is normal in caliber. There are no filling defects identified in main, lobar, or segmental pulmonary branches to suggest pulmonary embolus. Heart: The heart is normal in size and configuration, and without pericardial effusion. There are coronary artery calcifications. Lungs and pleural spaces: The lungs and pleural spaces are clear. The trachea and central airways are patent. Mediastinum: There is no mediastinal lymphadenopathy. Joan: Clear. Axillae: There is no axillary lymphadenopathy. Upper abdomen: Partially visualized upper abdominal viscera is within normal limits. Skeletal structures: The skeletal structures are osteopenic. Mild degenerative change and hyperkyphosis are noted in the thoracic spine. No lytic or blastic bony lesions are seen. IMPRESSION: 1. There is no evidence of pulmonary embolus in the main, lobar, or segmental pulmonary arteries. 2. The lungs are clear. Impression Assessment and Plan 81 yo female with recent right knee surgery, now with acute DVT - Right acute DVT, provoked from recent knee surgery will treat with heparin gtt and hope that she does not experience any nosebleeds if she does not have any bleeding then would consider Coumadin since it could be reversed if she has a nosebleed if she has bleeding on the heparin then could consider IVC filter placement - Hypothyroidism: continue Synthroid - recent knee surgery: continue Oxycodone for pain control but she has some constipation will provide Ultram as alternative, use colace for constipation since she feels she had a bad reaction to Miralax - GERD and eosinophilic esophagitis: Tums PRN, Zantac scheduled - MILTON: CPAP continue numerous vitamin supplementations Level of Care Med/Surg Resuscitation Status FULL RESUSCITATION VTE Prophylaxis VTE Risk Assessment Done? Y/N: Yes Risk Level: High Given or contraindicated: Other Anticoagulation (heparin gtt) Additional Copies To Joe Clay M.D.
[2017-02-09 19:27] VITALS: BP 101/85; PULSE 83; TEMP 37.4; O2SAT 97
[2017-02-09] MEDS ORDERED: TRAMADOL HCL 50 MG TAB PO PRN (19:30)
[2017-02-09] MEDS ORDERED: CALCIUM CARBONATE 500 MG CHEWABLE PO PRN (19:30)
[2017-02-09 19:38] VITALS: BMI 24.5
[2017-02-09 20:10] LABS: HEMATOCRIT 37.5 % (37-47); MEAN CELL VOLUME 100.5 fL (80-100); MEAN CORPUSCULAR HEMOGLOBIN 32.2 pg (25-34); MEAN PLATELET VOLUME 10.4 fL (7.4-10.4); PLATELET COUNT 357 K/uL (130-400); RED BLOOD COUNT 3.73 M/uL (4.2-5.4); WHITE BLOOD COUNT 6.85 K/uL (4.8-10.8)
[2017-02-09 20:21] LABS: PROTHROMBIN TIME (PATIENT) 10.5 SECONDS (9.0-12.0)
[2017-02-09] MEDS: RANITIDINE HCL 150 MG TAB PO SCH (20:21)
[2017-02-09] MEDS: DOCUSATE SODIUM 100 MG CAP PO SCH (20:22)
[2017-02-09] MEDS: HEPARIN 25,000 UNIT/500ML D5W 500 ML IV PRN (20:23)
[2017-02-09 21:10] VITALS: BP 101/85; PULSE 83; TEMP 37.4; O2SAT 97; Ht 172.7 cm; Wt 71.9 kg
[2017-02-09 22:28] VITALS: PULSE 81; O2SAT 97
[2017-02-10 00:27] VITALS: BP 156/72; PULSE 71; TEMP 36.9; O2SAT 96
[2017-02-10 03:08] LABS: BASO ABS # 0.07 K/uL (0-0.2); COMPLETE YES; HEMATOCRIT 37.2 % (37-47); IG% 0.1 %; LYMPH % 41.8 %; MEAN CELL VOLUME 101.4 fL (80-100); MEAN CORPUSCULAR HGB CONC 32.5 g/dl (32-36); MEAN PLATELET VOLUME 10.7 fL (7.4-10.4); MONO % 7.5 %; NEUT % 44.6 %; PLATELET COUNT 335 K/uL (130-400); RED BLOOD COUNT 3.67 M/uL (4.2-5.4); WHITE BLOOD COUNT 6.94 K/uL (4.8-10.8)
[2017-02-10 03:09] LABS: PARTIAL THROMBOPLASTIN RATIO 2.8
[2017-02-10 03:23] LABS: BUN/CREATININE RATIO 12.3 (10-20); CALCIUM 8.6 mg/dl (8.5-10.1); MAGNESIUM 2.3 mg/dl (1.8-2.4); POTASSIUM 3.6 mmol/L (3.5-5.1)
[2017-02-10] MEDS: HEPARIN 25,000 UNIT/500ML D5W 500 ML IV PRN (03:33)
[2017-02-10] MEDS ORDERED: LEVOTHYROXINE 25 MCG TAB PO SCH (06:30)
[2017-02-10 07:19] VITALS: BP 121/69; PULSE 60; TEMP 36.9; O2SAT 98
[2017-02-10] MEDS: DOCUSATE SODIUM 100 MG CAP PO SCH (08:15)
[2017-02-10] MEDS: RANITIDINE HCL 150 MG TAB PO SCH (08:15)
[2017-02-10] MEDS ORDERED: FERROUS GLUCONATE 324 MG TAB PO SCH (09:00)
[2017-02-10] MEDS ORDERED: CHOLECALCIFEROL 1000 INTER.UNIT TAB PO SCH (09:00)
[2017-02-10] MEDS ORDERED: XRL15 PO ×2 (09:25)
[2017-02-10] MEDS ORDERED: RIVA1TAB4 PO ×2 (09:25)
[2017-02-10] MEDS ORDERED: ULT50X PO ×2 (09:25)
[2017-02-10] MEDS ORDERED: RIVAROXABAN TAB 15 MG TAB PO ONE (09:30)
--- NOTE | 2017-02-10 09:40 | Discharge Instructions ---
Discharge Instructions Date of Service Feb 10, 2017. Admission Reason for Admission: Acute Dvt Discharge Discharge Diagnosis / Problem: (1) DVT (deep venous thrombosis) VTE Date & Time Date of VTE Diagnosis: Feb 09, 2017 Time of VTE Diagnosis: 12:00 Discharge Goals Goal(s): Diagnostic testing, Therapeutic intervention Activity Recommendations Activity Limitations: resume your previous activity . Instructions / Follow-Up Instructions / Follow-Up your DVT (blood clot) appears to have been related to the surgery - and therefore is what we would categorize as a "provoked" DVT -we'll treat with xarelto for approximately 3 months. most provoked clots stabilize and/or resolve by then. should you run into any serious problems with bleeding, occasionally these things can be managed with as little as a month of a blood thinner, although it's not optimal (and if things were really worrisome with bleeding, a filter device could be placed in the vein to prevent clot fragments from reaching your lungs - it's not likely that any of these situations will develop, however.) -xarelto is generally well tolerated, and because it basically just blocks the effect of one clotting factor, there's not the "too thin / too thick" roller coaster that can happen with warfarin (coumadin). while there is not a reversal agent like there is for coumadin, the overall risks of bleeding are far less on the newer anticoagulants, making it far less likely to have a serious bleeding event -of course, when you're on a blood thinner, you will have a higher propensity to bleeding. a general rule for safety is if it is bleeding you can put pressure on (such as a nosebleed or a cut), put pressure on the bleeding for 10 minutes. (my rule for people is to put pressure on it, then as soon as you can look at the clock - because for most people 2 minutes will feel like 10 minutes , and 10 minutes will feel like eternity. also resist the temptation to peek at it repeatedly during the 10 minutes -- for the purposes of stopping bleeding , 10 minutes of continuous pressure is a lot different than 20 thirty second intervals of pressure!) -if bleeding resolves with 10 minutes of pressure, it is more in the range of "nuisance" than disaster; if it doesn't resolve, then it would be time to come to be checked out (ie if it's a nosebleed it might need packed, if it's a cut it might need sutured) -if it's bleeding that you can't put pressure on (such as vomiting blood or bloody bowel movements) then you'd want to come to the hospital [facility] for evaluation - fortunately the serious and life threatening bleeding events happen far less often on the newer blood thinners like xarelto -the initial "phase" of treatment with xarelto will be 15mg twice a day for three weeks, after that you'll reduce to 20mg daily for the remainder of the three months -in the future, having formed one "provoked" clot, we'd want you to be vigilant on future prevention: -if you have a surgery in the future, remind the surgeon that you formed clots before, and therefore will likely need reasonably aggressive clot prevention -for long car trips, you'll want to get out and walk for 5-10 minutes every hour or so -for a long flight, either you'll want to make sure you can get up and walk 5-10 minutes out of the hour, or talk to Dr Clay about possibly even medication to prevent clot on the days of the flights Medication Instructions: Your condition is typically treated with an anticoagulant. Anticoagulants will thin your blood to help prevent new clots. * You should take her medication exactly as directed. * Never skip a dose. * Never take a double dose. If you miss a dose, take it as soon as you remember. Call your Primary Care doctor if you experience any of the following: * Swelling or Pain in your leg * Sudden, continuous pain deep in a muscle * Pain that worsens when you are active or when you stand still for a long time * Chest Pain * Sudden Shortness of Breath * Rapid or pounding heart beat * Fainting * Dizziness * Cough with blood or bloody sputum * Sweating more than normal * Bruises * Heavy or uncontrolled bleeding * Blood in your urine, stool or vomit * Black or tarry stools Caring for Your Self at Home: * Avoid sitting, standing or lying down for long periods without moving your legs and feet * When traveling by car, stop to get out and move around at least once every 3 hours * On long airplane, train or bus rides, get up and move around when possible * If you can't get up, wiggle your toes and tighten your calves to keep your blood moving Follow Up: It is important for you to keep your follow up appointments with your medical provider. Our Nurse Navigator will be calling to get you an appointment for mid-next week. If you haven't heard from us by about 1pm Sunday, please call the office ([facility]) to confirm. Current Hospital Diet Patient's current hospital diet: Regular Diet Discharge Diet Recommended Diet: Regular Diet Pending Studies Studies pending at discharge: no Medical Emergencies . Who to Call and When: Medical Emergencies: If at any time you feel your situation is an emergency, please call 911 immediately. . Non-Emergent Contact Non-Emergency issues call your: Primary Care Provider . . "Provider Documentation" section prepared by Josiah Martinez. . VTE Core Measure Inpt VTE Proph given/why not?: Other Anticoagulation (heparin gtt)
[2017-02-10 14:23] VITALS: BP 121/69; PULSE 60; TEMP 36.9; O2SAT 98
--- NOTE | 2017-02-10 17:17 | Discharge Summary ---
Discharge Summary Date of Service Feb 10, 2017. Discharge Summary Admission Date: Feb 09, 2017 at 18:47 Discharge Date: Feb 10, 2017 Discharge Disposition: Home Principal Diagnosis: DVT Immunizations: Have You Had Influenza Vaccine: Yes History of Tetanus Vaccine?: Yes History of Pneumococcal: Yes History of Hepatitis B Vaccine: Yes Procedures: outpatient venous doppler showing DVT, outpatient CT chest no PE Medication Reconciliation New Medications: Rivaroxaban (Xarelto) 15 Mg Tab 1 TAB PO BID, #42 TAB Rivaroxaban (Xarelto) 20 Mg Tab 20 MG PO DAILY, #30 TAB Tramadol HCl (Tramadol HCl) 50 Mg Tab 25 MG PO Q8 PRN for Pain, #20 TAB Continued Medications: Acetaminophen (Tylenol Extra Strength) 500 Mg Tab 1000 MG PO Q8 for 30 Days, #180 TAB Take 3 times per day to lessen pain. Calcium (Calcium) 500 Mg Tab 1000 MG PO QAM Calcium Carbonate (Tums) 500 Mg Chew 500 MG PO PRN for GI Upset Cholecalciferol (Vitamin D) 1,000 Unit Tab 1 TAB PO QAM Ferrous Gluconate (Ferrous Gluconate) 324 Mg Tab 324 MG PO DAILY for 30 Days, #30 TAB Flaxseed (Linseed) (Flaxseed Oil) 1 Cap Cap 1 CAP PO QAM Fluocinolone Acetonide (Otic) (Fluocinolone Acetonide) 0.01 % Oil 1 DOSE OTB DAILY PRN for ITCHY EARS Pramfuhxoqc-Unocnhvvrdv-Hvx C- (Glucosamine Chondroitin) 1 Tab Tab 1 DOSE PO QAM LIQUID Lactic Acid (Ammonium Lactate Cream 12%) 280 Gm Cr 1 DOSE TOP DAILY PRN for ITCHING ON BACK Levothyroxine Sodium (Synthroid) 25 Mcg Tab 25 MCG PO QAM, TAB Loratadine (Claritin) 10 Mg Tab 10 MG PO DAILY PRN for ALLERGIC REACTION, TAB Ranitidine HCl (Ranitidine HCl) 150 Mg Tab 150 MG PO BID, #60 TAB 2 Refills for stomach/reflux Triamcinolone Acet (Triamcinolone Acetonide) 45 Appln/15 Gm Oint 1 APPLN TOP BID PRN for RASH, #1 TUBE Vitamin B Cmplx/Vitc/Folic Ac (Nephrocaps) Cap 1 CAP PO QAM, #30 CAP Discontinued Medications: Aspirin (Aspirin) 325 Mg Ectab 325 MG PO BID for 45 Days, #90 Take to prevent blood clots. Oxycodone HCl (Oxycodone HCl) 5 Mg Tab 5 MG PO Q4H PRN for Pain for 30 Days, #60 TAB Take to as needed for Pain. 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 discussed reversibility vs time in therapeutic range and overall bleed risk -opted for NOAC - discharged on xarelto -anticipate a need for about 3 months anticoagulation -discussed aggressive clot prevention for any future high risk events -f/u PCP this coming week -all questions answered to the best of my ability Total Time Spent: Greater than 30 minutes This includes examination of the patient, discharge planning, medication reconciliation, and communication with other providers. Discharge Instructions Please refer to the electronic Patient Visit Report (Discharge Instructions) for additional information. Additional Copies To Joe Clay M.D.
[2017-06-12] MEDS ORDERED: ACET-1311 PO (13:38)
[2017-06-27] MEDS ORDERED: OXYC-57 PO (08:14)
[2017-06-27] MEDS ORDERED: CEPH500C2 PO (08:14)
== END 2017-02-10 14:57 | disposition home or self-care (01) | DRG 301 ==
LOC: C.MED 18:47
PROVIDERS: ADMIT Internal Medicine; ATTEND Family Medicine
DX: I82.4Z1 Acute embolism and thrombosis of unspecified deep veins of right distal lower extremity (principal); E03.9 Hypothyroidism, unspecified; G47.33 Obstructive sleep apnea (adult) (pediatric); K21.9 Gastro-esophageal reflux disease without esophagitis; K20.0 Eosinophilic esophagitis; Z96.651 Presence of right artificial knee joint; Z79.82 Long term (current) use of aspirin

== ENCOUNTER → 2017-02-09 | Outpatient (CLI) | payer BC ==
[~2017-02-09] MED LIST changes: +ACET-1138 PO; +ACET-1311 PO; -ACET325T96 PO; -ACETAMINOPHEN 500 MG TAB PO SCH; +ASPEC325 PO; -BUPIVACAINE LIPOSOME 266 MG, BUPIVACAINE/EPINEPHRINE INJ 50 ML, SODIUM CHLORIDE 0.9% PF... INFIL SCH; -CEFAZOLIN 2000 MG/60 ML D5W 60 ML IV SCH; +CEPH500C2 PO; -DIPH38TA PO; -FAMOTIDINE 20 MG TAB PO SCH; +FRRG PO; -GABAPENTIN 300 MG CAP PO SCH; -LACTATED RINGER'S 1000ML 1,000 ML IV SCH; -METOCLOPRAMIDE HCL 10 MG TAB PO SCH; +OPTIRAY 320 IV PRN; +OXYC-57 PO; +RIVA1TAB4 PO; +RXC5 PO; -SCOPOLAMINE 1.5 MG TDSY TD SCH; -TRANEXAMIC ACID INJ 1,000 MG in SODIUM CHLORIDE 0.9% 100ML 100 ML IV SCH; +ULT50X PO; +XRL15 PO; +ZNT150 PO; -[UNRECOGNIZED DRUG - REMARK] SCH
--- NOTE | 2017-02-09 15:28 | DIAGNOSTIC IMAGING REPORT ---
CT ANGIOGRAM OF THE CHEST CLINICAL HISTORY: Dyspnea. Recent surgery. COMPARISON STUDY: Chest x-ray dated 01/05/2017. TECHNIQUE: Following the IV administration of 86 cc of Optiray 320, CT angiogram of the chest was performed from the upper abdomen to the thoracic inlet utilizing the pulmonary embolus protocol. Images are reviewed in the axial, sagittal, and coronal planes. 3-D MIPS images are created and assessed. IV contrast was administered without complication. CT DOSE: 255.54 mGy.cm FINDINGS: Thyroid: Imaged portions of the thyroid gland are normal in size and attenuation. Thoracic aorta: The thoracic aorta is normal in caliber and demonstrates 4-vessel there arch anatomy. No dissection is seen. Pulmonary vasculature: The pulmonary trunk is normal in caliber. There are no filling defects identified in main, lobar, or segmental pulmonary branches to suggest pulmonary embolus. Heart: The heart is normal in size and configuration, and without pericardial effusion. There are coronary artery calcifications. Lungs and pleural spaces: The lungs and pleural spaces are clear. The trachea and central airways are patent. Mediastinum: There is no mediastinal lymphadenopathy. Joan: Clear. Axillae: There is no axillary lymphadenopathy. Upper abdomen: Partially visualized upper abdominal viscera is within normal limits. Skeletal structures: The skeletal structures are osteopenic. Mild degenerative change and hyperkyphosis are noted in the thoracic spine. No lytic or blastic bony lesions are seen. IMPRESSION: 1. There is no evidence of pulmonary embolus in the main, lobar, or segmental pulmonary arteries. 2. The lungs are clear. Electronically signed by: Farhan Ramirez M.D. 02/09/2017 3:26 PM Dictated Date/Time: 02/09/2017 3:22 PM
== END | disposition home or self-care (01) ==
LOC: C.CTS 14:03
PROVIDERS: ATTEND Nurse Practitioner
DX: M79.604 Pain in right leg (principal); R06.02 Shortness of breath; Z96.651 Presence of right artificial knee joint

== ENCOUNTER → 2017-04-17 | Outpatient (CLI) | payer BC ==
[~2017-04-17] MED LIST changes: +ACET-1311 PO; -ASPEC325 PO; +CEPH500C2 PO; +OXYC-57 PO; +RIVA1TAB4 PO; -RXC5 PO; +ULT50X PO; +XRL15 PO
--- NOTE | 2017-04-17 09:49 | DIAGNOSTIC IMAGING REPORT ---
ABDOMEN LIMITED (US) CLINICAL HISTORY: Right groin pain. COMPARISON STUDY: None. FINDINGS: There is a reducible small fat and bowel containing right inguinal hernia. No masses or fluid collections within the right groin. IMPRESSION: A small reducible fat and bowel containing right inguinal hernia. Electronically signed by: Eusebio Graff M.D. 04/17/2017 9:47 AM Dictated Date/Time: 04/17/2017 9:46 AM
== END | disposition home or self-care (01) ==
LOC: C.ULTR 08:56
PROVIDERS: ATTEND Nurse Practitioner
DX: R19.09 Other intra-abdominal and pelvic swelling, mass and lump (principal); K40.90 Unilateral inguinal hernia, without obstruction or gangrene, not specified as recurrent

== ENCOUNTER 2017-06-27 05:24 | Observation (INO) | payer BC ==
[2017-06-12 13:38] VITALS: BMI 24.0
--- NOTE | 2017-06-12 14:05 | PAT Medication Instructions ---
Service Date Jun 12, 2017. Current Home Medication List Acetaminophen (Tylenol), 650 MG PO Q6 PRN for Pain Calcium (Calcium), 1,000 MG PO QPM Calcium Carbonate (Tums), 500 MG PO for GI Upset Cholecalciferol (Vitamin D), 1 TAB PO NOON Flaxseed (Linseed) (Flaxseed Oil), 1 CAP PO NOON Pcfiigucqnh-Fzuwtittfdh-Esv C- (Glucosamine Chondroitin), 1 DOSE PO NOON Levothyroxine Sodium (Synthroid), 25 MCG PO QAM Loratadine (Claritin), 10 MG PO DAILY PRN for ALLERGIC REACTION Vitamin B Cmplx/Vitc/Folic Ac (Nephrocaps), 1 CAP PO NOON Medication Instructions For Your Scheduled Surgery - Hold the following medications 2 weeks prior to surgery: Flaxseed (Linseed) (Flaxseed Oil), 1 CAP PO NOON Uifpdysjisp-Izxypfpevgi-Xrs C- (Glucosamine Chondroitin), 1 DOSE PO NOON - Hold the following medications the morning of surgery: Calcium Carbonate (Tums), 500 MG PO for GI Upset Cholecalciferol (Vitamin D), 1 TAB PO NOON Loratadine (Claritin), 10 MG PO DAILY PRN for ALLERGIC REACTION Vitamin B Cmplx/Vitc/Folic Ac (Nephrocaps), 1 CAP PO NOON - Take the following medications the morning of surgery with a sip of water OTHERWISE NOTHING TO EAT OR DRINK AFTER MIDNIGHT: Acetaminophen (Tylenol), 650 MG PO Q6 PRN for Pain (may take if needed up to 4 hours prior to surgery) Levothyroxine Sodium (Synthroid), 25 MCG PO QAM - Take the following medications as scheduled the night before surgery: Acetaminophen (Tylenol), 650 MG PO Q6 PRN for Pain Calcium (Calcium), 1,000 MG PO QPM If you have any questions please call us at [phone] or [phone] or [phone]
[2017-06-12 15:51] LABS: BASO % 0.8 %; BASO ABS # 0.05 K/uL (0-0.2); COMPLETE YES; EOS % 7.7 %; HEMATOCRIT 41.6 % (37-47); IG% 0.3 %; LYMPH ABS # 1.43 K/uL (1.2-3.4); MEAN CELL VOLUME 96.7 fL (80-100); MEAN CORPUSCULAR HGB CONC 34.1 g/dl (32-36); MEAN PLATELET VOLUME 11.2 fL (7.4-10.4); MONO % 7.7 %; NEUT % 60.5 %; PLATELET COUNT 243 K/uL (130-400); WHITE BLOOD COUNT 6.21 K/uL (4.8-10.8)
[2017-06-12 15:58] LABS: BUN/CREATININE RATIO 17.8 (10-20); CALCIUM 9.6 mg/dl (8.5-10.1); POTASSIUM 4.4 mmol/L (3.5-5.1)
[2017-06-27] VITALS (9 sets, daily range): BP systolic 120–164; BP diastolic 63–87; PULSE 53–71; TEMP 36.3–37.2; O2SAT 94–98; Ht 171.4 cm; Wt 72.4 kg
[~2017-06-27] VITALS: Ht 171.4 cm; Wt 72.4 kg
[~2017-06-27 05:24] MED LIST changes: -ACET-1138 PO; -CEPH500C2 PO; -FLUO5OIL OTB; -FRRG PO; -LCHC12280 TOP; -OXYC-57 PO; -RIVA1TAB4 PO; -TRMO115 TOP; -ULT50X PO; -XRL15 PO; -ZNT150 PO
[2017-06-27] MEDS ORDERED: CEFAZOLIN 2000 MG/60 ML D5W 60 ML IV SCH (06:00)
[2017-06-27] MEDS ORDERED: LACTATED RINGER'S 1000ML 1,000 ML IV SCH (06:00)
[2017-06-27] MEDS ORDERED: CEFAZOLIN IV 2,000 MG in DEXTROSE 5% 50ML 50 ML IV SCH (06:00)
[2017-06-27] MEDS ORDERED: HEPARIN SOD 5000 UNIT/0.5 ML CARP SQ SCH ×2 (06:00→14:00)
[2017-06-27] MEDS ORDERED: LIDOCAINE HCL 2% 2 ML VIAL (20MG/ML) ONE (06:39)
[2017-06-27] MEDS ORDERED: ONDANSETRON INJ 2 MG/ML 2 ML VIAL ONE (06:39)
[2017-06-27] MEDS ORDERED: FENTANYL CITRATE INJ 50 MCG/1 ML 2 ML VIAL ONE (06:39)
[2017-06-27] MEDS ORDERED: MIDAZOLAM HCL 1 MG/ML 2ML VIAL ONE (06:39)
[2017-06-27] MEDS ORDERED: PROPOFOL IV EMULSION 10 MG/ML 20 ML VIAL IV ONE ×2 (06:39→07:25)
[2017-06-27] MEDS ORDERED: LIDOCAINE HCL 1% 20 ML VIAL ONE (06:46)
[2017-06-27] MEDS ORDERED: BUPIVACAINE 0.5 % 5 MG/1 ML MPF 30ML VIAL ONE (06:47)
[2017-06-27] MEDS ORDERED: CEFAZOLIN SOD 1 GM VIAL ONE (06:47)
[2017-06-27 07:11] LABS: PROTHROMBIN TIME (PATIENT) 10.4 SECONDS (9.0-12.0)
[2017-06-27] MEDS ORDERED: EpHEDrine SULFATE INJ 50 MG/ML AMP IV PRN (08:00)
[2017-06-27] MEDS ORDERED: ATROPINE SULFATE 0.1 MG/ML 5ML SYR IV PRN (08:00)
[2017-06-27] MEDS ORDERED: ONDANSETRON INJ 2 MG/ML 2 ML VIAL IV PRN ×2 (08:00→08:15)
--- NOTE | 2017-06-27 08:03 | [facility] Operative Report ---
Operative Report Operative Date Jun 27, 2017. Pre-Operative Diagnosis Right Inguinal Hernia Post-Operative Diagnosis Same as preop Procedure(s) Performed Right Open Inguinal Hernia Repair with Mesh Surgeon Dr. 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 Any exceptions are noted below.
[2017-06-27] MEDS ORDERED: OXYC-57 PO (08:14)
[2017-06-27] MEDS ORDERED: CEPH500C2 PO (08:14)
[2017-06-27] MEDS ORDERED: OXYCODONE/ACETAMINOPHEN 5-325 TAB PO PRN (08:15)
[2017-06-27] MEDS ORDERED: HYDROmorphone INJ 0.5 MG/0.5 ML SYR IV PRN (08:15)
--- NOTE | 2017-06-27 08:18 | Discharge Instructions ---
Discharge Instructions Date of Service Jun 27, 2017. Admission Reason for Admission: Right Inguinal Hernia Discharge Discharge Diagnosis / Problem: Rt inguinal hernia Discharge Goals Goal(s): Decrease discomfort, Improve function, Improve disease control Activity Recommendations Activity Limitations: as noted below Lifting Limitations: no more than 10 pounds Exercise/Sports Limitations: until after follow-up appointment May Resume Sexual Activity: when tolerated Shower/Bathe: keep incision dry (may shower over incision in 2 days) Driving or Machine Use: wait 4-5 days SPECIAL CARE INSTRUCTIONS: * Cover incisions and change daily for comfort/drainage. * Leave steri strips in place * May use ibuprofen for pain as tolerated. * Expect some swelling and bruising. Call your doctor if: * Temperature above 101 degrees * Pain not relieved by pain medicine ordered * There is increased drainage or redness from any incision * You have any unanswered questions or concerns [phone]. FOLLOW UP VISIT: If not already scheduled, please call the office for a follow-up visit. for next week- some suture removal OFFICE PHONE NUMBER: Dr. Palafox Office . Current Hospital Diet Patient's current hospital diet: Gluten Free Diet Discharge Diet Recommended Diet: Gluten Free Diet Procedures Procedures Performed: Right Open Inguinal Hernia Repair with Mesh Pending Studies Studies pending at discharge: no Medical Emergencies . Who to Call and When: Medical Emergencies: If at any time you feel your situation is an emergency, please call 911 immediately. . Non-Emergent Contact Non-Emergency issues call your: Primary Care Provider, Surgeon . "Provider Documentation" section prepared by Guero Palafox. . VTE Core Measure Inpt VTE Proph given/why not?: Unfractionated heparin SQ, SCD's
[2017-06-27] MEDS: FENTANYL CITRATE INJ 50 MCG/1 ML 2 ML VIAL IV PRN ×2 (08:20→08:27)
[2017-06-27] MEDS ORDERED: IV FLUIDS COMPLETED PRN (08:30)
--- NOTE | 2017-06-27 08:48 | Anesthesiology Progress Note ---
Anesthesia Post Op Note Date & Time Jun 27, 2017 at 08:48 Vital Signs Pain Intensity: 2 Vital Signs Past 12 Hours Date Time Temp Pulse Resp B/P (MAP) Pulse Ox O2 Delivery O2 Flow Rate FiO2 06/27/17 08:43 36.5 06/27/17 08:41 160/66 06/27/17 08:40 59 16 06/27/17 08:40 59 16 99 06/27/17 08:36 149/71 06/27/17 08:35 59 14 99 06/27/17 08:35 60 06/27/17 08:31 170/68 06/27/17 08:30 59 10 06/27/17 08:30 58 10 99 06/27/17 08:26 171/78 06/27/17 08:25 59 11 06/27/17 08:25 59 11 100 06/27/17 08:25 Nasal Cannula 3 06/27/17 08:21 170/74 06/27/17 08:20 61 12 06/27/17 08:20 61 12 100 06/27/17 08:17 180/74 06/27/17 08:15 66 15 06/27/17 08:15 68 15 100 06/27/17 08:10 36.4 70 16 178/78 100 Oxymask 10 06/27/17 05:46 36.7 63 18 154/75 (101) 96 Room Air Notes Mental Status: alert / awake / arousable, participated in evaluation Pt Amnestic to Procedure: Yes Nausea / Vomiting: adequately controlled Pain: adequately controlled Airway Patency, RR, SpO2: stable & adequate BP & HR: stable & adequate Hydration State: stable & adequate Anesthetic Complications: no major complications apparent
--- NOTE | 2017-06-27 08:53 | Anesthesiology Progress Note ---
Anesthesia Post Op Note Date & Time Jun 27, 2017 at 08:53 Vital Signs Pain Intensity: 2 Vital Signs Past 12 Hours Date Time Temp Pulse Resp B/P (MAP) Pulse Ox O2 Delivery O2 Flow Rate FiO2 06/27/17 08:43 36.5 06/27/17 08:41 160/66 06/27/17 08:40 59 16 06/27/17 08:40 59 16 99 06/27/17 08:36 149/71 06/27/17 08:35 59 14 99 06/27/17 08:35 60 06/27/17 08:31 170/68 06/27/17 08:30 59 10 06/27/17 08:30 58 10 99 06/27/17 08:26 171/78 06/27/17 08:25 59 11 06/27/17 08:25 59 11 100 06/27/17 08:25 Nasal Cannula 3 06/27/17 08:21 170/74 06/27/17 08:20 61 12 06/27/17 08:20 61 12 100 06/27/17 08:17 180/74 06/27/17 08:15 66 15 06/27/17 08:15 68 15 100 06/27/17 08:10 36.4 70 16 178/78 100 Oxymask 10 06/27/17 05:46 36.7 63 18 154/75 (101) 96 Room Air Notes Mental Status: alert / awake / arousable, participated in evaluation Pt Amnestic to Procedure: Yes Nausea / Vomiting: adequately controlled Pain: adequately controlled Airway Patency, RR, SpO2: stable & adequate BP & HR: stable & adequate Hydration State: stable & adequate Anesthetic Complications: no major complications apparent
--- NOTE | 2017-06-27 09:05 | OPERATIVE REPORT ---
DATE OF OPERATION: 06/27/2017 PREOPERATIVE DIAGNOSIS: Right inguinal hernia. POSTOPERATIVE DIAGNOSIS: Same with indirect defect and lipoma. NAME OF OPERATION: Open right inguinal hernia repair with mesh. STAFF SURGEON: Dr. Palafox. BARREL LATHE OPERATOR: Jolynn Remy PA-C. ANESTHESIA: General LMA. PROCEDURE: The patient was brought in the operating room and placed on the operating table in supine position. Her right lower quadrant was prepped and draped in usual fashion. 0.5% plain Marcaine was used to anesthetize the skin and subcutaneous tissue. Incision made parallel to the inguinal ligament, carrying dissection down identifying the external oblique fibers. These were incised along their length to the external ring, identifying the lipomatous tissue and round ligament. On dissection the patient did have an indirect hernia sac which was reduced. The lipoma was excised and ligated using 2-0 silk suture. The round ligament was transected and ligated using 2-0 chromic catgut suture. At this point, a mesh plug was placed into the internal ring, secured to surrounding tissue using 2-0 Ethibond suture. A mesh patch was then placed into the floor of the canal over the internal ring, secured from medial to lateral using 2-0 Ethibond suture. It was irrigated with antibiotic solution then the external oblique fibers closed over the mesh using 2-0 Ethibond suture. The site was anesthetized using 0.5% plain Marcaine and subcutaneous tissue reapproximated using 2-0 plain catgut suture and the skin reapproximated using 4-0 nylon suture and Steri-Strips. The patient was transferred to recovery room in stable condition. I attest to the content of the Intraoperative Record and any orders documented therein. Any exception s are noted below.
[2017-06-27] MEDS: LACTATED RINGER'S 1000ML 1,000 ML IV SCH (09:37)
[2017-06-27] MEDS: DOCUSATE SODIUM/SENNA 50/8.6MG TAB PO SCH ×2 (10:59→20:38)
[2017-06-27] MEDS: OXYCODONE/ACETAMINOPHEN 5-325 TAB PO PRN ×3 (11:11→20:40)
[2017-06-27] MEDS: CEFAZOLIN IV 1,000 MG in DEXTROSE 5% 50ML 50 ML IV SCH ×3 (11:14→23:24)
[2017-06-27] MEDS ORDERED: LORATADINE 10 MG TAB PO PRN (12:30)
--- NOTE | 2017-06-27 12:53 | Medical Consult ---
Consultation Date of Consultation: Jun 27, 2017. Attending Physician: Guero Palafox M.D. Reason for Consultation: Medical Management History of Present Illness Ms. Calderon is a 81 y/o female with PMHx of Graves Disease, Treatment-Induced Hypothyroidism, S/P R TKA with DVT previously on Xarelto, and Eosinophilic Esophagitis who is S/P R inguinal hernia repair by Dr. Palafox on 06/27. Hospitalist services consulted for medical management. Is having some pain at surgical site but received pain medication. She denies any cardiac history including UT or CHF. She follows with endocrinology with TSH checks Q2M and frequently has her Synthroid adjusted. She was initially dx with Graves but due to treatment for this she ultimately developed hypothyroidism. Per [employer], she appears to have some residual thyroid function as they have been successfully weaning her dose down. She also has eosinophilic esophagitis and follows with Dr. Mcgee for endoscopies. Past Medical/Surgical History 1. Graves Disease 2. Treatment-Induced Hypothyroidism 3. Eosinophilic Esophagitis 4. S/P R TKA with DVT previously on Xarelto Family History Diabetes mellitus FATHER MOTHER Social History Smoking Status: Never Smoker Alcohol Use: none Drug Use: none Marital Status: Housing Status: lives with family, unknown Occupation Status: retired Allergies Coded Allergies: [place] (Verified Allergy, Severe, ESOPHAGUS CLOSES, 06/27/17) Gadolinium (Verified Allergy, Severe, THROAT SWELLS, DYSPNEA, 06/27/17) Nunez (Verified Allergy, Severe, ESOPHAGUS CLOSES, 06/27/17) Peanut (Verified Allergy, Severe, ESOPHAGUS CLOSES, 06/27/17) Procaine (Verified Allergy, Severe, NASAL PASSAGE CLOSES UP AND SWELLS NEAR INJECTION, 06/27/17) LIDOCAINE IS OK AND TAKES ANTIHISTAMINE Quinolones (Verified Allergy, Severe, 3 HOURS AFTER TAKING EXP U-SHAPED THROAT AND EAR REACTION, 06/27/17) Dairy (Verified Allergy, Intermediate, ALLERGIC TO MILK & DAIRY PRODUCTS, 06/27/17) Iodine (Verified Allergy, Intermediate, APPLIED IODINE CAUSED RASH, 06/27/17 ) Mushroom (Verified Allergy, Intermediate, RASH, 06/27/17) NSAIDs (Verified Allergy, Intermediate, HIGH BP, HIVES OR RASH, 06/27/17) Nortriptyline (Verified Allergy, Intermediate, UNKNOWN REACTION, 06/27/17) Statins (Verified Allergy, Intermediate, DRUG INDUCED SKIN ERUPTION AND BODY PAIN, 06/27/17) Sulfa Antibiotics (Verified Allergy, Intermediate, DRUG-INDUCED SKIN REACTION, 06/27/17) Cantaloupe (Verified Allergy, Mild, RASH, 06/27/17) Eggs or Egg-derived Products (Verified Allergy, Mild, ESOPHAGUS CLOSES, 06/27/17) IF EATS EGGS MUST HAVE CLARITIN SHE TOLERATES PROPOPHOL Latex1 -Allergic Contact Dermititis (Verified Allergy, Mild, RASH, 06/27/17) Turmeric (Verified Allergy, Mild, BLACK AREAS IN VISION, 06/27/17) Alendronate (Verified Allergy, Unknown, SKIN ERUPTIONS STARTS THE NEXT AM FOR 1 WK., 06/27/17) Gluten (Verified Allergy, Unknown, AIRWAY ISSUES, 06/27/17) Levofloxacin (Verified Allergy, Unknown, U-SHAPED THROAT & EAR RXN. 3 HRS AFTER 1ST TABLET., 06/27/17) BOTH CIPRO AND LEVAQUIN CAUSED THE ABOVE REACTION. Omeprazole (Verified Allergy, Unknown, SWELLING UNDER EYES, SOB, SKIN ERUPTION UNDER EYE AND FOOT, 06/27/17) Raloxifene (Verified Allergy, Unknown, LEG CRAMPS, 06/27/17) Risedronate (Verified Allergy, Unknown, HIGH BP, 06/27/17) Azelastine (Verified Adverse Reaction, Intermediate, SEVERE HEADACHE- WENT TO ER, 06/27/17) Caffeine (Verified Adverse Reaction, Intermediate, ELEVATES BP, 06/27/17) Duloxetine (Verified Adverse Reaction, Intermediate, HEADACHE,DIZZY SPELLS , LOST BALANCE TWICE, 06/27/17) Fluconazole (Verified Adverse Reaction, Intermediate, RACING HEARTBEAT AND DIZZY SPELLS, 06/27/17) Gabapentin (Verified Adverse Reaction, Intermediate, HEADACHE, EYE PROBLEMS, DIZZINESS, 06/27/17) Pantoprazole (Verified Adverse Reaction, Intermediate, HIGH BP, 06/27/17) Phenylpropanolamine (Verified Adverse Reaction, Intermediate, ELEVATES BP , 06/27/17) Adhesives (Verified Adverse Reaction, Mild, BANDAIDS, 06/27/17) Diphtheria Toxoid (Verified Adverse Reaction, Mild, LOCALIZED REACTION, 06/27/17) IS OK WITH INJECTED INTO HIP Pertussis Vaccine (Verified Adverse Reaction, Mild, LOCALIZED REACTION, 06/27/17) IS OK WITH INJECTED INTO HIP Pneumococcal Vaccine (Verified Adverse Reaction, Mild, LOCALIZED REACTION , 06/27/17) IS OK WHEN INJECTED INTO HIP Poliomyelitis Vaccine, Inactivated (Verified Adverse Reaction, Mild, LOCALIZED REACTION, 06/27/17) IS OK WITH INJECTED INTO HIP Tetanus Toxoid, Adsorbed (Verified Adverse Reaction, Mild, LOCALIZED REACTION, 06/27/17) IS OK WITH INJECTED INTO HIP Current Inpatient Medications Current Inpatient Medications Medications (Trade) Dose Ordered Sig/Júnior Route Start Time Stop Time Status Last Admin Dose Admin Lactated Ringer's 1,000 ml @ 15 mls/hr Q24H IV 06/27/17 06:00 06/28/17 05:59 06/27/17 06:09 15 MLS/HR Cefazolin Sodium 60 ml @ 120 mls/hr PREOP IV 06/27/17 06:00 06/27/17 18:00 06/27/17 07:05 120 MLS/HR Heparin Sodium (Porcine) (Heparin Sq 5000 Unit/0.5ml) 5,000 unit Q8 SQ 06/27/17 14:00 07/27/17 13:59 Heparin Sodium (Porcine) (Heparin Sq 5000 Unit/0.5ml) 5,000 unit PREOP SQ 06/27/17 06:00 06/27/17 18:00 06/27/17 06:25 5,000 UNIT Fentanyl Citrate (Fentanyl Inj) 50 mcg Q5M PRN IV 06/27/17 08:00 06/27/17 13:00 06/27/17 08:27 50 MCG Ondansetron HCl (Zofran Inj) 4 mg ONE PRN IV 06/27/17 08:00 06/27/17 13:00 Ephedrine Sulfate (EpHEDrine SULFATE INJ) 5 mg Q5M PRN IV 06/27/17 08:00 06/27/17 13:00 Atropine Sulfate (Atropine Sulfate 0.1MG/Ml Inj) 0.5 mg Q1M PRN IV 06/27/17 08:00 06/27/17 13:00 Lactated Ringer's 1,000 ml @ 50 mls/hr Q20H IV 06/27/17 08:03 07/27/17 08:02 06/27/17 09:37 50 MLS/HR Oxycodone/ Acetaminophen (Percocet 5-325mg Tab) 1 tab Q4H PRN PO 06/27/17 08:15 07/11/17 08:14 06/27/17 11:11 1 TAB Oxycodone/ Acetaminophen (Percocet 5-325mg Tab) 2 tab Q4H PRN PO 06/27/17 08:15 07/11/17 08:14 Cefazolin Sodium 1000 mg/Dextrose 55 ml @ 100 mls/hr Q6H IV 06/27/17 12:00 07/07/17 11:59 06/27/17 11:14 100 MLS/HR Hydromorphone HCl (Dilaudid Inj) 0.5 mg Q3H PRN IV 06/27/17 08:15 07/11/17 08:14 Senna/Docusate Sodium (Senokot S Tab) 1 tab BID PO 06/27/17 11:00 07/27/17 10:59 Ondansetron HCl (Zofran Inj) 4 mg Q6H PRN IV 06/27/17 08:15 07/27/17 08:14 Miscellaneous (Iv Fluids Completed) 1 ea PRN PRN N/A 06/27/17 08:30 06/27/18 08:29 Review of Systems Constitutional: No fever, No chills ENT: No nasal symptoms, No sore throat, No trouble swallowing Respiratory: No cough, No shortness of breath Cardiovascular: No chest pain, No palpitations Abdomen: + pain (minimal in R groin), No nausea, No vomiting, No diarrhea, No constipation Musculoskeletal: No swelling, No calf pain Hematologic / Lymphatic: No abnormal bleeding/bruising, No clotting problems Integumentary: No rash Physical Exam Date Time Temp Pulse Resp B/P (MAP) Pulse Ox O2 Delivery O2 Flow Rate FiO2 06/27/17 10:57 61 17 141/68 (92) 96 Nasal Cannula 2.0 06/27/17 10:05 60 16 120/65 (83) 97 Nasal Cannula 2.0 06/27/17 09:30 36.4 53 12 161/66 (97) 98 Nasal Cannula 06/27/17 09:03 Nasal Cannula 2.0 06/27/17 09:03 36.7 60 12 164/76 (105) 97 Nasal Cannula 2.0 06/27/17 09:03 Nasal Cannula 2.0 06/27/17 08:56 152/77 06/27/17 08:54 57 12 99 06/27/17 08:54 57 12 06/27/17 08:51 163/64 06/27/17 08:49 58 16 99 06/27/17 08:49 59 16 06/27/17 08:46 155/69 06/27/17 08:44 60 06/27/17 08:44 60 16 98 06/27/17 08:43 36.5 06/27/17 08:41 160/66 06/27/17 08:40 59 16 06/27/17 08:40 59 16 99 06/27/17 08:36 149/71 06/27/17 08:35 59 14 99 06/27/17 08:35 60 06/27/17 08:31 170/68 06/27/17 08:30 59 10 06/27/17 08:30 58 10 99 06/27/17 08:26 171/78 06/27/17 08:25 59 11 06/27/17 08:25 59 11 100 06/27/17 08:25 Nasal Cannula 3 06/27/17 08:21 170/74 06/27/17 08:20 61 12 06/27/17 08:20 61 12 100 06/27/17 08:17 180/74 06/27/17 08:15 66 15 06/27/17 08:15 68 15 100 06/27/17 08:10 36.4 70 16 178/78 100 Oxymask 10 06/27/17 05:46 36.7 63 18 154/75 (101) 96 Room Air General Appearance: WD/WN, no apparent distress Head: normocephalic, atraumatic Eyes: sclerae normal ENT: hearing grossly normal, pharynx normal Neck: supple, no JVD, trachea midline Respiratory/Chest: lungs clear, normal breath sounds, no respiratory distress, no accessory muscle use Cardiovascular: regular rate, rhythm, no gallop, no murmur Abdomen/GI: normal bowel sounds, non tender, soft, + pertinent finding ( dressing applied to R groin C/D/I) Extremities/Musculoskelatal: no calf tenderness, no pedal edema Neurologic/Psych: alert, oriented x 3 Skin: normal color, warm/dry Laboratory Results Last 24 Hours Test 06/27/17 06:33 Prothrombin Time 10.4 SECONDS Prothromb Time International Ratio 1.0 Assessment & Plan Ms. Calderon is a 81 y/o female with PMHx of Graves Disease, Treatment-Induced Hypothyroidism, S/P R TKA with DVT previously on Xarelto, and Eosinophilic Esophagitis who is S/P R inguinal hernia repair by Dr. Palafox on 06/27. S/P R Inguinal Hernia Repair by Dr. Palafox on 06/27: - Pain management, DVT prophylaxis, PT/OT, IVF per primary - DVT prophylaxis - Heparin 5000 units SC Q8H Graves Disease with current Treatment-Induced Hypothyroidism: - Synthroid 25 mcg daily - will refer further adjustments and labs per outpatient provider Eosinophilic Esophagitis: - Extensive allergies and dietary restrictions - no dyspnea, stridor, trouble swallowing - Claritin 10 mg PRN Thank you for the consultation. Hospitalist will continue to follow.
[2017-06-27] MEDS ORDERED: NURSING VERBAL MED ORDER ONE (13:15)
[2017-06-27] MEDS ORDERED: CALCIUM CARBONATE 500 MG CHEWABLE PO PRN (13:15)
[2017-06-27] MEDS: HEPARIN SOD 5000 UNIT/0.5 ML CARP SQ SCH ×2 (13:39→21:33)
[2017-06-28 03:51] VITALS: BP 163/76; PULSE 65; TEMP 36.9; O2SAT 96
[2017-06-28] MEDS: OXYCODONE/ACETAMINOPHEN 5-325 TAB PO PRN ×2 (04:03→11:21)
[2017-06-28] MEDS: LACTATED RINGER'S 1000ML 1,000 ML IV SCH (04:03)
[2017-06-28] MEDS ORDERED: LEVOTHYROXINE 25 MCG TAB PO SCH (06:00)
--- NOTE | 2017-06-28 06:10 | Surgery Progress Note ---
Surgery Progress Note Date of Service Jun 28, 2017. Subjective some pain- controlled with 1 oxycodone some mild difficulty getting out of bed Objective Vital Signs: Date Time Temp Pulse Resp B/P (MAP) Pulse Ox O2 Delivery O2 Flow Rate FiO2 06/28/17 03:51 36.9 65 16 163/76 (105) 96 Room Air 06/27/17 23:15 Room Air 06/27/17 22:50 37.2 67 16 154/87 (109) 94 CPAP 06/27/17 19:40 36.8 71 18 164/74 (104) 97 Room Air 06/27/17 15:30 Room Air 06/27/17 15:15 36.6 67 18 162/74 (103) 95 Room Air 06/27/17 12:00 36.3 57 16 153/63 (93) 97 Room Air 06/27/17 10:57 61 17 141/68 (92) 96 Nasal Cannula 2.0 06/27/17 10:05 60 16 120/65 (83) 97 Nasal Cannula 2.0 06/27/17 09:30 36.4 53 12 161/66 (97) 98 Nasal Cannula 06/27/17 09:03 Nasal Cannula 2.0 06/27/17 09:03 36.7 60 12 164/76 (105) 97 Nasal Cannula 2.0 06/27/17 09:03 Nasal Cannula 2.0 06/27/17 08:56 152/77 06/27/17 08:54 57 12 99 06/27/17 08:54 57 12 06/27/17 08:51 163/64 06/27/17 08:49 58 16 99 06/27/17 08:49 59 16 06/27/17 08:46 155/69 06/27/17 08:44 60 06/27/17 08:44 60 16 98 06/27/17 08:43 36.5 06/27/17 08:41 160/66 06/27/17 08:40 59 16 06/27/17 08:40 59 16 99 06/27/17 08:36 149/71 06/27/17 08:35 59 14 99 06/27/17 08:35 60 06/27/17 08:31 170/68 06/27/17 08:30 59 10 06/27/17 08:30 58 10 99 06/27/17 08:26 171/78 06/27/17 08:25 59 11 06/27/17 08:25 59 11 100 06/27/17 08:25 Nasal Cannula 3 06/27/17 08:21 170/74 06/27/17 08:20 61 12 06/27/17 08:20 61 12 100 06/27/17 08:17 180/74 06/27/17 08:15 66 15 06/27/17 08:15 68 15 100 06/27/17 08:10 36.4 70 16 178/78 100 Oxymask 10 General Appearance: no apparent distress Respiratory/Chest: no respiratory distress Abdomen: non distended Incision(s): intact, drainage (slight drainage) Laboratory Results: Results Past 24 Hours Test 06/27/17 06:33 Range/Units Prothrombin Time 10.4 9.0-12.0 SECONDS Prothromb Time International Ratio 1.0 0.9-1.1 Assessment & Plan 06/28/17- s/p open Rt inguinal hernia repair- will d/c home if pain controlled this am and able to get oob on own may need to stay another day
[2017-06-28] MEDS: HEPARIN SOD 5000 UNIT/0.5 ML CARP SQ SCH (06:20)
[2017-06-28 07:21] VITALS: BP 158/72; PULSE 63; TEMP 37.2; O2SAT 96
--- NOTE | 2017-06-28 08:21 | Anesthesiology Progress Note ---
Anesthesia Post Op Note Date & Time Jun 28, 2017 at 08:21 Vital Signs Vital Signs Past 12 Hours Date Time Temp Pulse Resp B/P (MAP) Pulse Ox O2 Delivery O2 Flow Rate FiO2 06/28/17 07:21 37.2 63 19 158/72 (100) 96 Room Air 06/28/17 07:05 Room Air 06/28/17 03:51 36.9 65 16 163/76 (105) 96 Room Air 06/27/17 23:15 Room Air 06/27/17 22:50 37.2 67 16 154/87 (109) 94 CPAP Notes Mental Status: alert / awake / arousable, participated in evaluation Pt Amnestic to Procedure: Yes Nausea / Vomiting: adequately controlled Pain: adequately controlled Airway Patency, RR, SpO2: stable & adequate BP & HR: stable & adequate Hydration State: stable & adequate Anesthetic Complications: no major complications apparent
[2017-06-28 10:26] VITALS: BP 158/72; PULSE 63; TEMP 37.2; O2SAT 96
[2017-06-28] MEDS ORDERED: CEPHALEXIN MONOHYDRATE 500 MG CAP PO SCH (12:00)
--- NOTE | 2017-07-02 23:54 | DISCHARGE SUMMARY ---
PRIMARY DISCHARGE DIAGNOSIS: Right inguinal hernia. SECONDARY DISCHARGE DIAGNOSIS: Graves disease. PROCEDURE PERFORMED: Open right inguinal hernia repair with mesh. HOSPITAL COURSE: The patient is a 81-year-old female with right inguinal hernia, brought in through same day and taken to the operating room for open repair with mesh. The procedure was well tolerated. She was transferred to the surgical floor for overnight observation. On postoperative day 1, her pain was managed with oral analgesics. She was tolerating diet. She had some difficulty getting out of bed early in the morning but by later in the day, was independent with daily activity. She was stable for discharge at that time. DISCHARGE INSTRUCTIONS: Discharge home. Follow up with Dr. Palafox in 1 week for suture removal. DISCHARGE MEDICATIONS: Percocet 1-2 tablets every 6 hours as needed, Keflex 500 mg p.o. t.i.d. x5 and may resume home medications, Synthroid 25 mcg daily, Claritin 10 mg daily, Nephrocaps 1 tablet daily, flaxseed oil 1 tablet daily, glucosamine 1 tablet daily, Tums 500 mg as needed, calcium 1000 mg daily supplement and Tylenol 650 mg every 6 hours as needed once the Percocet is discontinued.
== END 2017-06-28 13:40 | disposition home or self-care (01) ==
LOC: C.ACU 05:24 → C.MSW 08:04 → UNDOADMOB 08:04 → ENRESERV 08:34
PROVIDERS: ADMIT Surgery; ATTEND Surgery
DX: K40.90 Unilateral inguinal hernia, without obstruction or gangrene, not specified as recurrent (principal); D17.79 Benign lipomatous neoplasm of other sites; E05.90 Thyrotoxicosis, unspecified without thyrotoxic crisis or storm; Z96.651 Presence of right artificial knee joint; Z86.718 Personal history of other venous thrombosis and embolism

== ENCOUNTER → 2018-01-04 | Outpatient (CLI) | payer BC ==
[~2018-01-04] MED LIST changes: -LORA10TA5 PO; +LORA10TA6 PO
--- NOTE | 2018-01-04 13:55 | MAMMOGRAPHY REPORT ---
BILATERAL DIGITAL SCREENING MAMMOGRAM TOMOSYNTHESIS WITH CAD: 01/04/2018 CLINICAL HISTORY: Routine screening. TECHNIQUE: Breast tomosynthesis in addition to standard 2D mammography was performed. Current study was also evaluated with a Computer Aided Detection (CAD) system. COMPARISON: Comparison is made to exams dated: 07/06/2016 mammogram, 03/19/2015 mammogram, 12/11/2013 m ammogram, 05/16/2012 mammogram, 06/08/2010 mammogram - [facility], and 06/07/2009. BREAST COMPOSITION: There are scattered areas of fibroglandular density in both breasts. FINDINGS: No suspicious masses, calcifications, or areas of architectural distortion are noted in ei ther breast. There has been no significant interval change compared to prior exams. A biopsy clip is again noted in the right breast. Bilateral asymmetries and bilateral benign-appearing calcification s are not significantly changed. IMPRESSION: ACR BI-RADS CATEGORY 2: BENIGN There is no mammographic evidence of malignancy. A 1 year screening mammogram is recommended. The pa tient will receive written notification of the results. Approximately 10% of breast cancers are not detected with mammography. A negative mammographic report should not delay biopsy if a clinically suggestive mass is present. Yokasta Noonan M.D. ah/:01/04/2018 12:28:23 Billiard Table Assembler: Francesca KRUSE(Nicolas)(), [facility] letter sent: Normal 1/2 BI-RADS Code: ACR BI-RADS Category 2: Benign
== END | disposition home or self-care (01) ==
LOC: C.MAMM 10:27
PROVIDERS: ATTEND Family Medicine
DX: Z12.31 Encounter for screening mammogram for malignant neoplasm of breast (principal)

== ENCOUNTER → 2018-06-13 | Outpatient (CLI) | payer BC ==
[~2018-06-13] MED LIST changes: -B-CO1CAP17 PO; +B-COCAP2 PO
== END | disposition home or self-care (01) ==
LOC: C.MAMM 13:33
PROVIDERS: ATTEND Family Medicine
DX: M81.0 Age-related osteoporosis without current pathological fracture (principal); M85.88 Other specified disorders of bone density and structure, other site